=== PATIENT | male | born 1950 | race Caucasian/White ===

== ENCOUNTER 2019-06-22 13:35 | Emergency (ER) | payer MEDICARE, SELFPAY ==
[2019-06-22 13:42] VITALS: BP 126/82; PULSE 75; RESP 18; TEMP 36.2; O2SAT 98
--- NOTE | 2019-06-22 13:47 | PC.NURSE ---
Pt self discontinued plavix and xeralto and put himself on ASA. Meds were to expensive for him to take.
[2019-06-22 14:00] VITALS: BP 136/78; PULSE 65; RESP 17; O2SAT 97
[2019-06-22 14:31] LABS: Prothrombin Time 11.5 SECONDS (10.1-12.7)
[2019-06-22 14:32] LABS: Add Manual Diff / Slide Review NO; Basophils Absolute Auto 0 /uL (0-100); Basophils Percent Auto 0.6 % (0-2); Eosinophils Absolute Auto 200 /uL (0-450); Eosinophils Percent Auto 2.8 % (2-4); Hematocrit 50.3 % (41-53); Hemoglobin 17.7 g/dL (13.5-17.5); Lymphocytes Absolute Auto 2100 /uL (1100-4500); Lymphocytes Percent Auto 29.3 % (25-40); Mean Corpuscular HGB Conc 35.2 % (30-36); Mean Corpuscular Hemoglobin 31.5 PG (26-34); Mean Corpuscular Volume 89.4 fL (80-100); Monocytes Absolute Auto 500 /uL (0-900); Monocytes Percent Auto 6.5 % (3-14); Neutrophils Absolute Auto 4400 /uL (1500-7000); Neutrophils Percent Auto 60.8 % (50-75); Platelet Count 179 X10^3/uL (150-400); Red Blood Cell Count 5.63 X10^6/uL (4.5-5.9); Red Cell Distribution Width 14.7 % (11.6-14.8); White Blood Cell Count 7.3 X10^3/uL (4.5-11.0)
[2019-06-22 14:36] LABS: Blood Urea Nitrogen 18 mg/dL (9-20); Calcium 9.6 mg/dL (8.4-10.2); Carbon Dioxide 28 mmol/L (22-32); Chloride 104 mmol/L (98-107); Estimated Glomerular Filt Rate > 60.0 mL/min (>60); Glucose 91 mg/dL (80-110); HEMOLYSIS 16 (0-50); Potassium 3.9 mmol/L (3.4-5.1); Sodium 140 mmol/L (137-145)
--- NOTE | 2019-06-22 14:48 | ED_ITS ---
HPI - Abdominal Pain General Chief Complaint: Abdominal Pain Stated Complaint: hernia/night sweats Time Seen by Provider: 06/22/19 14:05 Source: patient Mode of arrival: Ambulatory Limitations: no limitations History of Present Illness HPI narrative: Patient is a 69-year-old male with known peripheral vascular disease presenting with night sweats and right inguinal hernia. He states that he has had right inguinal hernia for the last 2 years every time he stands up it pops out and when he lies down he is able to push it in. This has not changed it is currently in he has no pain in his right groin. He has for the last 4-5 nights woken up drenching in sweat. He denies any abdominal pain nausea vomiting chest pain shortness of breath fevers weight loss or chills. He says during the day he has gotten warm, and needed to take off layers complaint: abdominal pain Related Data Home Medications Medication Instructions Recorded Confirmed aspirin 325 mg PO DAILY 06/22/19 06/22/19 Allergies Allergy/AdvReac Type Severity Reaction Status Date / Time No Known Drug Allergies Allergy Verified 06/22/19 13:47 Review of Systems Review of Systems ROS Unobtainable: All systems reviewed & are unremarkable except as noted in HPI and below Constitutional Constitutional: Denies chills, Reports excessive sweating, Denies lethargy, Denies malaise and Reports poor appetite Cardiovascular Cardiovascular: Denies chest pain, Denies irregular heart rhythm, Denies lightheadedness, Denies palpitations and Denies orthopnea Gastrointestinal Gastrointestinal: Reports as per HPI Genitourinary Genitourinary: Denies hematuria, Denies flank pain, Denies urinary incontinence and Denies urinary urgency Musculoskeletal Musculoskeletal: Denies back pain, Denies muscle weakness, Denies numbness and Denies tingling Integumentary/Breasts Skin/Breast: Denies pruritus, Denies erythema, Denies rash and Denies wounds Neurologic Neurologic: Denies numbness and Denies tingling Endocrine Endocrine: Reports excessive sweating and Denies palpitations Patient History Medical History Abdominal aortic aneurysm (AAA) (Resolved 2018) Anxiety (Chronic Unknown) Aortic stenosis (Chronic 2018) Chickenpox (Resolved) Deep vein thrombosis (Chronic 2018) Femoral artery aneurysm (Resolved 2018) Measles (Resolved) Migraines (Chronic Unknown) Mumps (Resolved) Substance abuse (Chronic Unknown) Surgical History Hx of aortic aneurysm repair (Resolved 08/2017) Hx of surgical procedure (Resolved 08/2017) Family History Sister Age: 78 Lymphoma Father No problems noted. Mother No problems noted. Social History Smoking Status: Never smoker Smoking Status: Never smoker alcohol intake frequency: 0-2 drinks per day Substance Use Type: marijuana Exam Initial Vital Signs Initial Vital Signs: Vital Signs Temperature 97.1 F L 06/22/19 13:42 Pulse Rate 75 06/22/19 13:42 Respiratory Rate 18 06/22/19 13:42 Blood Pressure 126/82 06/22/19 13:42 Pulse Oximetry 98 06/22/19 13:42 GENERAL: Well-appearing, well-nourished and in no acute distress. HEENT: Head atraumatic,EOMI, pupils reactive, face symmetric CARDIOVASCULAR: Regular rate and rhythm without murmurs, rubs or gallops. RESPIRATORY: Breath sounds equal bilaterally, no wheezes rales or rhonchi. ABDOMEN: Soft, nontender. Normoactive bowel sounds all 4 quadrants. No guarding or rebound. Right inguinal hernia reducible no swelling nontender EXTREMITIES: Normal range of motion, no clubbing or edema. Neurovascularly intact. Distal pedal pulse in right foot is present and warm NEUROLOGICAL: Alert and oriented x4.Normal gait and speech. SKIN: Warm, dry, no laceration, no petechiae, no rashes or lesions. Course Orders Ordered: ED Orders 06/22/19 14:16 Basic Metabolic Panel Stat Complete Blood Count AUTO DIFF Stat Prothrombin Time INR Stat Vital Signs Vital signs: Vital Signs - 8 hr 06/22/19 13:42 06/22/19 14:00 06/22/19 15:05 Temperature 97.1 F L Pulse Rate 75 65 64 Respiratory Rate 18 17 17 Blood Pressure 126/82 Blood Pressure [Left Arm] 136/78 136/77 Pulse Oximetry 98 97 100 06/22/19 16:03 Temperature Pulse Rate 68 Respiratory Rate 17 Blood Pressure Blood Pressure [Left Arm] 133/98 H Pulse Oximetry 96 MDM - Abdominal Pain Lab Data Attestation: I reviewed the patient's lab results. Result diagrams: 06/22/19 14:16 06/22/19 14:16 Labs: Lab Results 06/22/19 06/22/19 06/22/19 Range/Units 14:16 14:16 14:16 WBC 7.3 (4.5-11.0) X10^3/uL RBC 5.63 (4.5-5.9) X10^6/uL Hgb 17.7 H (13.5-17.5) g/dL Hct 50.3 (41-53) % MCV 89.4 (80-100) fL MCH 31.5 (26-34) PG MCHC 35.2 (30-36) % RDW 14.7 (11.6-14.8) % Plt Count 179 (150-400) X10^3/uL Neut % (Auto) 60.8 (50-75) % Lymph % (Auto) 29.3 (25-40) % [place] % (Auto) 6.5 (3-14) % Eos % (Auto) 2.8 (2-4) % Baso % (Auto) 0.6 (0-2) % Neut # (Auto) 4400 (9806-5802) /uL Lymph # (Auto) 2100 (0606-1932) /uL [place] # (Auto) 500 (0-900) /uL Eos # (Auto) 200 (0-450) /uL Baso # (Auto) 0 (0-100) /uL PT 11.5 (10.1-12.7) SECONDS INR 1.0 (0.9-1.3) Sodium 140 (137-145) mmol/L Potassium 3.9 (3.4-5.1) mmol/L Chloride 104 (98-107) mmol/L Carbon Dioxide 28 (22-32) mmol/L BUN 18 (9-20) mg/dL Creatinine 1.20 (0.66-1.25) mg/dL Estimated GFR > 60.0 (>60) mL/min BUN/Creatinine Ratio 15.0 (6-22) Glucose 91 (80-110) mg/dL Calcium 9.6 (8.4-10.2) mg/dL [facility] Narrative Medical decision making narrative: At this time patient has no abdominal pain he has a chronic ongoing right inguinal hernia which is clearly reducible. I recommend he follow up with a PCP and with surgery. He has no sign of infection, no fever or leukocytosis or other signs. At this time no further workup indicated. Discharge Plan Departure Patient Disposition: Home Clinical Impression: Hernia, inguinal, right Discharge Date/Time: 06/22/19 16:30 Instructions: Groin Hernia -- Adult Activity Restrictions/Additional Instructions: *You have been diagnosed with right inguinal hernia *What to do: You will need to have surgery to repair your hernia. *Continue to take medications as directed *Follow up with your primary care provider in 2-3 days Will need to have referral to surgery for repair *Return to ER if you should have increasing weakness chills, shortness of breath cough abdominal pain nausea vomiting inability to reduce or any new, worsening or concerning symptoms Prescriptions: No Action aspirin 325 mg Tablet 325 mg PO DAILY RF: 0 Referrals: [facility] [Provider Group] [facility] [Outside]
[2019-06-22 15:05] VITALS: BP 136/77; PULSE 64; RESP 17; O2SAT 100
[2019-06-22 16:03] VITALS: BP 133/98; PULSE 68; RESP 17; O2SAT 96
== END 2019-06-22 16:30 | disposition home or self-care (01) ==
PROVIDERS: Emergency Provider Emergency Medicine
DX: K40.91 Unilateral inguinal hernia, without obstruction or gangrene, recurrent (principal); R61 Generalized hyperhidrosis
CPT/HCPCS: 36415; 80048; 85025; 85610; 99283; 99284

== ENCOUNTER 2024-04-22 08:35 | Emergency (ER) | payer MEDICARE, SELFPAY ==
[2024-04-22] VITALS (27 sets, daily range): BP systolic 132–180; BP diastolic 71–94; PULSE 41–69; RESP 16–19; TEMP 36.4; O2SAT 95–99; BMI 22.9
--- NOTE | 2024-04-22 08:51 | ED_ITS ---
HPI - General Adult General Chief complaint: Extremity Injury, Lower Stated complaint: L leg swelling Time Seen by Provider: 04/22/24 08:40 History of Present Illness HPI narrative: 74-year-old gentleman with peripheral artery disease, AAA, femoral arterial aneurysm and arterial stents in the Left LEwho presents with leg swelling. He was seen at [facility] in the emergency department on April 06 for the same complaint. He does have a history of DVT is not currently anticoagulated. At that time the swelling was felt to be secondary to his peripheral arterial disease and he was referred back to his vascular surgeon and effort. There was no PE, DVT, infection, heart failure and no limb threatening ischemia. He notes that the pain is so severe currently that he is having difficulty sleeping. He typically will get up and walk around to help with the pain. He notes that he has been putting up all of his would for the winter as they heat with a fireplace. That means that he has been actively chopping lifting and stacking firewood. He does not complain of worsening pain beyond some fatigue in the low back that seems to be his baseline particularly after a day of heavy labor with the fire wood. He is chronic exertional dyspnea and continues to smoke marijuana daily. Related Data Home Medications Medication Instructions Recorded Confirmed aspirin 325 mg tablet 325 mg PO DAILY 06/22/19 06/22/19 Previous Rx's Medication Instructions Recorded oxycodone-acetaminophen 5 mg-325 1 tab PO Q6H PRN pain #60 tabs 04/22/24 mg tablet polyethylene glycol 3350 17 17 g PO BID #850 grams 04/22/24 gram/dose oral powder (Miralax) Allergies Allergy/AdvReac Type Severity Reaction Status Date / Time No Known Drug Allergies Allergy Verified 06/22/19 13:47 Review of Systems Review of Systems Narrative: Increased urinary symptoms with no dysuria but significant nocturia Other Pertinent positive and negative findings as per HPI Patient History Medical History (Updated 04/22/24 @ 18:28 by Roberta Blanco MD) Femoral artery aneurysm (2018) Chickenpox Mumps Measles Migraines (Unknown) Substance abuse (Unknown) Anxiety (Unknown) Deep vein thrombosis (2018) Aortic stenosis (2018) Abdominal aortic aneurysm (AAA) (2018) Surgical History Hx of surgical procedure (08/2017) Hx of aortic aneurysm repair (08/2017) Family History Sister Age: 83 Lymphoma Father No problems noted. Mother No problems noted. Social History Smoking Status: Never smoker Smoking Status: Never smoker alcohol intake frequency: 0-2 drinks per day Substance Use Type: marijuana Exam Initial Vital Signs Initial Vital Signs: Vital Signs Temperature 97.6 F 04/22/24 08:55 Pulse Rate 69 04/22/24 08:55 Respiratory Rate 19 04/22/24 08:55 Blood Pressure 165/81 H 04/22/24 08:55 Pulse Oximetry 98 04/22/24 08:55 Oxygen Delivery Method Room Air 04/22/24 08:55 General: Thin in no acute distress. Able to give a complete and coherent history. HEENT: Moist mucous membranes, normal sclera with reactive pupils, Neck: No JVD, Respiratory: Lungs with scattered wheeze in all lung menard, no respiratory distress no accessory muscle use Cardiac: Regular rate and rhythm no murmurs no bruits Abdomen: Soft, nontender, good bowel tones, no flank pain Skin: Warm and dry, no rashes Neurologic: Grossly neurologically intact with no obvious asymmetries or abnormalities Extremities: Left lower extremity is slightly more edematous than the right. It is warm to the touch no erythema. No joint effusion of the knee or the ankle. I do not appreciate pulses from the groin down however he has excellent capillary refill Psych: Cooperative, appropriate insight and affect Course Orders Ordered: ED Orders 04/22/24 09:10 CT angio abd aorta runoff Stat 04/22/24 09:24 Comprehensive Metabolic Panel Stat 04/22/24 11:15 Comprehensive Metabolic Panel Stat PTT Partial Thromboplastin Jonel Stat Prothrombin Time INR Stat 04/22/24 14:15 CBC Auto Diff [Complete Blood Count AUTO DIFF] Stat Hydromorphone HCl (Hydromorphone 0.5 Mg Inj) 0.5 mg IV Q15MIN PRN PRN Reason: Pain, Last Admin: 04/22/24 09:21 Dose: 0.5 mg Documented By: CHARLI Discontinued Medications Oxycodone/Acetaminophen (Oxycodone/Acetaminophen 5/325 Tablet) 1 tab PO NOW ONE Stop: 04/22/24 10:54 Last Admin: 04/22/24 10:59 Dose: 1 tab Documented By: CHARLI Oxycodone/Acetaminophen (Oxycodone/Acetaminophen 5/325 Tablet) 1 tab PO NOW ONE Stop: 04/22/24 17:40 Last Admin: 04/22/24 17:45 Dose: 1 tab Documented By: ZULEYMA Vital Signs Vital signs: Vital Signs - 8 hr 04/22/24 10:30 04/22/24 10:30 04/22/24 11:00 Pulse Rate 55 L 63 Blood Pressure 136/74 Pulse Oximetry 96 99 04/22/24 11:18 04/22/24 11:18 04/22/24 11:30 Pulse Rate 57 L 56 L Blood Pressure 180/85 H Pulse Oximetry 99 98 04/22/24 11:30 04/22/24 12:00 04/22/24 12:10 Pulse Rate 53 L 58 L Blood Pressure 157/85 H Pulse Oximetry 97 96 04/22/24 12:10 04/22/24 12:30 04/22/24 12:31 Pulse Rate 58 L 59 L Blood Pressure 142/84 H Pulse Oximetry 97 97 04/22/24 12:31 04/22/24 13:00 04/22/24 13:00 Pulse Rate 53 L Blood Pressure 142/80 H 153/81 H Pulse Oximetry 98 04/22/24 13:30 04/22/24 13:30 04/22/24 14:00 Pulse Rate 55 L Blood Pressure 152/83 H 133/78 Pulse Oximetry 97 04/22/24 14:00 04/22/24 14:30 04/22/24 14:58 Pulse Rate 51 L 41 L 48 L Blood Pressure Pulse Oximetry 97 95 98 04/22/24 14:58 04/22/24 15:00 04/22/24 15:00 Pulse Rate 49 L Blood Pressure 132/78 132/78 Pulse Oximetry 98 04/22/24 15:30 04/22/24 15:31 04/22/24 15:31 Pulse Rate 46 L 50 L Blood Pressure 145/78 H Pulse Oximetry 98 98 04/22/24 16:00 04/22/24 16:00 04/22/24 16:30 Pulse Rate 54 L Blood Pressure 160/88 H 162/94 H Pulse Oximetry 99 04/22/24 16:30 Pulse Rate 55 L Blood Pressure Pulse Oximetry 98 Medical Decision Making Lab Data 04/22/24 14:15 04/22/24 11:15 Labs: Lab Results 04/22/24 04/22/24 04/22/24 Range/Units 09:24 11:15 14:15 WBC 6.2 (4.5-11.0) X10^3/uL RBC 4.81 (4.5-5.9) X10^6/uL Hgb 14.8 (13.5-17.5) g/dL Hct 44.5 (41-53) % MCV 92.4 (80-100) fL MCH 30.7 (26-34) PG MCHC 33.3 (30-36) % RDW 15.1 H (11.6-14.8) % Plt Count 173 (150-400) X10^3/uL Neut % (Auto) 55.6 (50-75) % Lymph % (Auto) 31.3 (25-40) % [place] % (Auto) 6.3 (3-14) % Eos % (Auto) 6.0 H (2-4) % Baso % (Auto) 0.8 (0-2) % Neut # (Auto) 3400 (2157-4410) /uL Lymph # (Auto) 1900 (2382-8176) /uL [place] # (Auto) 400 (0-900) /uL Eos # (Auto) 400 (0-450) /uL Baso # (Auto) 0 (0-100) /uL PT 11.1 (9.4-12.5) SECONDS INR 1.0 (0.9-1.3) APTT 29 (25.1-36.5) SECONDS Sodium 138 135 L (137-145) mmol/L Potassium 3.8 4.0 (3.4-5.1) mmol/L Chloride 106 106 (98-107) mmol/L Carbon Dioxide 26 26 (22-32) mmol/L BUN 22 H 21 H (9-20) mg/dL Creatinine 1.09 1.02 (0.66-1.25) mg/dL Estimated GFR > 60 > 60 (>60) mL/min BUN/Creatinine Ratio 20.2 20.6 (6-22) Glucose 96 91 (80-110) mg/dL Calcium 9.2 8.8 (8.4-10.2) mg/dL Total Bilirubin 0.8 0.7 (0.2-1.3) mg/dL AST 33 34 (17-59) IU/L ALT 25 24 (<50) IU/L Alkaline Phosphatase 58 48 (38-126) U/L Total Protein 7.1 6.7 (6.3-8.2) g/dL Albumin 4.2 3.9 (3.5-5.0) g/dL Globulin 2.9 2.8 (1.7-4.1) g/dL Albumin/Globulin Ratio 1.4 1.4 (1.0-2.8) Imaging Data CT scan - abdomen/pelvis: Radiologist's Impression: PROCEDURE: CT ANGIO ABD AORTA RUNOFF INDICATIONS: L leg pain and swelling TECHNIQUE: After the administration of intravenous contrast, 2.5 mm sections acquired from T12 to the feet, with optional delayed image acquisition from the knees to the feet. 3-dimensional maximum intensity projection (MIP) coronal and sagittal reformats, and/or 3-dimensional volume rendering reformatting was then performed. For radiation dose reduction, the following was used: automated exposure control. COMPARISON: None. FINDINGS: Image Quality: Diagnostic. Abdominal aorta: Scattered atherosclerotic plaque without significant stenosis. Aortic-bi iliac endovascular stent graft. No in stent stenosis. Splanchnic vessels: Celiac artery, superior mesenteric artery, renal arteries demonstrate normal postcontrast enhancement without evidence of occlusion or significant stenosis. Right lower extremity: Normal contrast opacification of the right lower extremity vasculature with no vessel occlusion or significant stenosis. Right popliteal endovascular stent. No in stent stenosis. Three-vessel runoff to the right ankle and foot. Left lower extremity: Normal contrast opacification of the left lower extremity vasculature with no vessel occlusion or significant stenosis. Three vessel runoff to the left ankle and foot. Lower Chest: No significant findings. ABDOMEN: Liver: No solid mass. Left hepatic cyst or hemangioma. Gallbladder: No radiopaque gallstones or wall thickening. Biliary ducts: No biliary dilation. Pancreas: No ductal dilation. Spleen: Size is within normal limits. Adrenal Glands: No adrenal nodules. Kidneys and Ureters: No hydronephrosis bilateral nonobstructing stones ranging in size from 1-3 millimeters.. No solid mass. No complex renal cystic lesion which requires follow up. Stomach and Bowel: Normal colonic caliber, without significant wall thickening. The appendix is normal. Peritoneum: No abnormal intraperitoneal fluid. No free air. Ventral Wall: No hernia. Abdominal Nodes: No retroperitoneal or mesenteric adenopathy by size criteria. Vessels: Aorta and inferior vena cava are normal in size. PELVIS: Pelvic Organs: Unremarkable. Bladder: Unremarkable. Pelvic Nodes: No enlarged lymph nodes. Miscellaneous: There is a large 15.8 x 13.6 x 18.5 centimeter heterogeneously enhancing mass in the left pelvis. Lesion is causing local mass effect with white word displacement of the left pelvic vasculature in the urinary bladder. Bones: No aggressive osseous abnormality. Spine degenerative disc disease and facet arthropathy. IMPRESSION: Large 15.8 x 13.6 x 18.5 centimeter left pelvic mass highly suspicious for malignancy. No arterial occlusion or significant arterial stenosis. Please note left lower extremity and/or pelvic venous occlusion are not excluded by this study. [id number] endovascular stent graft and right popliteal artery endovascular stent are patent. Dictated by: Natalie Parish MD, PhD on 04/22/2024 at 10:01 [facility] Narrative Medical decision making narrative: CC: Continued left leg pain and swelling Complicating co-morbidities: Peripheral vascular disease Data collected from: patient, Medical records reviewed: Please see summary of ER visit on the at [facility] including CT angiogram DVT study, blood work Differential considered: Vascular outflow obstruction, poor arterial flow, pelvic mass, I doubt infection, DVT is possible but study was-10 days ago and there has been little change in his symptoms Exam documented above, pertinent findings include: Mildly swollen left lower extremity without redness or warmth. Excellent capillary refill to the toes but palpable inguinal pulse is not noted. Bilateral scattered wheezes without respiratory distress Lab Test results independently reviewed as above. Pertinent findings: Chemistries are unremarkable with normal liver studies normal renal function Imaging studies independently reviewed: CT with runoff shows no vascular difficulties and no in stent occlusion. He does however have a mass in his left pelvis that is blocking lymphatic outflow that likely is the source of the pain and swelling in the left side Consultations: Discussed concerns with Radiology in real-time. Opted to do an abdomen pelvis CT scan with runoff with specific instructions to come in on pelvic structures Discussed with [facility] surgeon, recommends review with Oncology surgeon Discussion with the patient and his . They are updated on findings, concerns and continued discussions with physicians to develop to develop a follow up plan Discussed with [facility] transfer center, we will talk with General surgery at [facility]. Treatments: 0.5 mg of Dilaudid, 1 oral Percocet Re-evaluations: In light of the large pelvic mass, care is discussed with general surgeon, Repeat phone calls to [facility]. Initial surgeon they contact was not the appropriate one. Apparently appropriate surgeon was paged is currently in surgery will not be available till after 6:00 p.m.. Patient is notified of the reason for delay in care and understands. Discussion: 74-year-old gentleman no primary care physician on no medications presents for a 2nd ER visit, 1st visit was at [facility], complaining of left lower extremity pain. He does have significant peripheral vascular disease. As [facility] DVT and pulmonary embolism were ruled out as well as congestive heart failure and kidney failure is sources of his increased edema. CT scan with aortic runoff of the abdomen to make sure that he did not have arterial occlusions and to further evaluate pelvis was done today and shows a large pelvic mass that is impeding lymphatic flow, causing some left-sided hydronephrosis and pushing against his colon but not causing colonic obstruction. CT scan was discussed with surgeon at not like who recommended referral to Surgical Oncology sarcoma Clinic. He will hopefully try to leave a message for the clinic for them to call the patient to schedule follow up. Have asked the patient to try and schedule follow up with the primary care physician so that a referral might actually be initiated to [facility] sarcoma oncology clinic. He is going to need consultation and likely surgical intervention for diagnostic and therapeutic procedures. In the meantime he has given a prescription for Percocet to use for the pain from the swelling in the left lower extremity and prescription for MiraLax to make sure that who stool stays soft to help with the constipation that is currently right-sided that will be exacerbated with the Percocet. Findings reviewed with the patient in detail. There was no indication for admission at this time he is safe for discharge Discharge Plan Departure Patient Disposition: Home Clinical Impression: Abdominal mass Qualifiers: Abdominal location: left lower quadrant Qualified Code(s): R19.04 - Left lower quadrant abdominal swelling, mass and lump Instructions: DI for Soft Tissue Sarcoma-Adult Activity Restrictions/Additional Instructions: Thank you for coming in today The CT scan that we did shows a 16 x 14 x 19 cm mass in your lower abdomen. This is pressing down at the top of your leg and impairing lymphatic flow. That is the reason your leg is hurting and you are having so much swelling in the leg. I did speak with 1 of the general surgeons at the [facility]. His recommendation with looking at the scan was to follow up with surgical oncologist through the sarcoma Clinic. We do not have a tissue diagnosis but the mass could be consistent with a sarcoma cancer. The mass is big enough that it pushes against your colon slightly which is causing constipation which is some of the right-sided pain. It is okay to use laxatives once in awhile but I would suggest getting some MiraLax and taking 1-2 scoops in large glass of water daily, particularly if you are using narcotic pain medication It is appropriate to use narcotic pain medication if you choose to do so. I have sent a prescription for Percocet to [facility]. You should expect to hear from the sarcoma Clinic at the [facility], they have your phone number and address. Hopefully they will be able to get you an appointment without a primary care physician. You do need a primary care physician. You can call [facility] at [phone] and ask who they have available for primary care physicians. You can also contact the [facility] residency Clinic. Often times they are able to get people in for emergency department follow up their phone number is [phone] If all else fails and you are stuck, I am working day shift at [facility] in the emergency department on May 23, 2020, , and I wish you the very best Prescriptions: New oxycodone-acetaminophen 5-325 mg tablet 1 tab PO Q6H PRN (Reason: pain) Qty: 60 0RF polyethylene glycol 3350 [Miralax] 17 gram/dose powder 17 g PO BID Qty: 850 3RF Rx Instructions: take 2 capfulls daily to prevent constipation from your mass and narcotic use No Action aspirin 325 mg Tablet 325 mg PO DAILY Stand Alone Forms: Patient Portal/API
--- NOTE | 2024-04-22 09:04 | PC.NURSE ---
Denies injury. States worsening swelling and pain (cramping, burning) over the past 2 weeks. Pt was told original tests were negative and was discharged. Pt states he has been taking ibuprofen at home w/ no relief of pain. Swelling noted; no pitting edema noted.
--- NOTE | 2024-04-22 09:10 | DI.CT.S_ITS ---
PROCEDURE: CT ANGIO ABD AORTA RUNOFF INDICATIONS: L leg pain and swelling TECHNIQUE: After the administration of intravenous contrast, 2.5 mm sections acquired from T12 to the feet, with optional delayed image acquisition from the knees to the feet. 3-dimensional maximum intensity projection (MIP) coronal and sagittal reformats, and/or 3-dimensional volume rendering reformatting was then performed. For radiation dose reduction, the following was used: automated exposure control. COMPARISON: None. FINDINGS: Image Quality: Diagnostic. Abdominal aorta: Scattered atherosclerotic plaque without significant stenosis. Aortic-bi iliac endovascular stent graft. No in stent stenosis. Splanchnic vessels: Celiac artery, superior mesenteric artery, renal arteries demonstrate normal postcontrast enhancement without evidence of occlusion or significant stenosis. Right lower extremity: Normal contrast opacification of the right lower extremity vasculature with no vessel occlusion or significant stenosis. Right popliteal endovascular stent. No in stent stenosis. Three-vessel runoff to the right ankle and foot. Left lower extremity: Normal contrast opacification of the left lower extremity vasculature with no vessel occlusion or significant stenosis. Three vessel runoff to the left ankle and foot. Lower Chest: No significant findings. ABDOMEN: Liver: No solid mass. Left hepatic cyst or hemangioma. Gallbladder: No radiopaque gallstones or wall thickening. Biliary ducts: No biliary dilation. Pancreas: No ductal dilation. Spleen: Size is within normal limits. Adrenal Glands: No adrenal nodules. Kidneys and Ureters: No hydronephrosis bilateral nonobstructing stones ranging in size from 1-3 millimeters.. No solid mass. No complex renal cystic lesion which requires follow up. Stomach and Bowel: Normal colonic caliber, without significant wall thickening. The appendix is normal. Peritoneum: No abnormal intraperitoneal fluid. No free air. Ventral Wall: No hernia. Abdominal Nodes: No retroperitoneal or mesenteric adenopathy by size criteria. Vessels: Aorta and inferior vena cava are normal in size. PELVIS: Pelvic Organs: Unremarkable. Bladder: Unremarkable. Pelvic Nodes: No enlarged lymph nodes. Miscellaneous: There is a large 15.8 x 13.6 x 18.5 centimeter heterogeneously enhancing mass in the left pelvis. Lesion is causing local mass effect with white word displacement of the left pelvic vasculature in the urinary bladder. Bones: No aggressive osseous abnormality. Spine degenerative disc disease and facet arthropathy. IMPRESSION: Large 15.8 x 13.6 x 18.5 centimeter left pelvic mass highly suspicious for malignancy. No arterial occlusion or significant arterial stenosis. Please note left lower extremity and/or pelvic venous occlusion are not excluded by this study. [id number] endovascular stent graft and right popliteal artery endovascular stent are patent. Dictated by: Natalie Parish MD, PhD on 04/22/2024 at 10:01 Approved by: Natalie Parish MD, PhD on 04/22/2024 at 10:12
[2024-04-22] MEDS: HYDROMORPHONE 0.5 MG INJ IV (09:21)
[2024-04-22 09:41] LABS: Alanine Aminotransferase 25 IU/L (<50); Albumin 4.2 g/dL (3.5-5.0); Albumin Globulin Ratio 1.4 (1.0-2.8); Alkaline Phosphatase 58 U/L (38-126); Aspartate Aminotransferase 33 IU/L (17-59); BUN Creatinine Ratio 20.2 (6-22); Bilirubin Total 0.8 mg/dL (0.2-1.3); Blood Urea Nitrogen 22 mg/dL (9-20); Calcium 9.2 mg/dL (8.4-10.2); Carbon Dioxide 26 mmol/L (22-32); Chloride 106 mmol/L (98-107); Estimated Glomerular Filt Rate > 60 mL/min (>60); Globulin 2.9 g/dL (1.7-4.1); Glucose 96 mg/dL (80-110); HEMOLYSIS < 15 (0-50); Potassium 3.8 mmol/L (3.4-5.1); Sodium 138 mmol/L (137-145); Total Protein 7.1 g/dL (6.3-8.2)
[2024-04-22] MEDS: OXYCODONE/ACETAMINOPHEN 5/325 TABLET 1 TAB PO ×2 (10:59→17:45)
[2024-04-22 11:33] LABS: Prothrombin Time 11.1 SECONDS (9.4-12.5)
[2024-04-22 11:36] LABS: PTT Partial Thromboplastin Tim 29 SECONDS (25.1-36.5)
[2024-04-22 11:38] LABS: Alanine Aminotransferase 24 IU/L (<50); Albumin 3.9 g/dL (3.5-5.0); Albumin Globulin Ratio 1.4 (1.0-2.8); Alkaline Phosphatase 48 U/L (38-126); Aspartate Aminotransferase 34 IU/L (17-59); BUN Creatinine Ratio 20.6 (6-22); Bilirubin Total 0.7 mg/dL (0.2-1.3); Blood Urea Nitrogen 21 mg/dL (9-20); Calcium 8.8 mg/dL (8.4-10.2); Carbon Dioxide 26 mmol/L (22-32); Chloride 106 mmol/L (98-107); Estimated Glomerular Filt Rate > 60 mL/min (>60); Globulin 2.8 g/dL (1.7-4.1); Glucose 91 mg/dL (80-110); Sodium 135 mmol/L (137-145); Total Protein 6.7 g/dL (6.3-8.2)
[2024-04-22 11:39] LABS: HEMOLYSIS 52 (0-50)
[2024-04-22 14:22] LABS: Add Manual Diff / Slide Review NO; Basophils Absolute Auto 0 /uL (0-100); Basophils Percent Auto 0.8 % (0-2); Eosinophils Absolute Auto 400 /uL (0-450); Hematocrit 44.5 % (41-53); Hemoglobin 14.8 g/dL (13.5-17.5); Lymphocytes Absolute Auto 1900 /uL (1100-4500); Lymphocytes Percent Auto 31.3 % (25-40); Mean Corpuscular HGB Conc 33.3 % (30-36); Mean Corpuscular Hemoglobin 30.7 PG (26-34); Mean Corpuscular Volume 92.4 fL (80-100); Monocytes Absolute Auto 400 /uL (0-900); Monocytes Percent Auto 6.3 % (3-14); Neutrophils Absolute Auto 3400 /uL (1500-7000); Neutrophils Percent Auto 55.6 % (50-75); Platelet Count 173 X10^3/uL (150-400); Red Blood Cell Count 4.81 X10^6/uL (4.5-5.9); Red Cell Distribution Width 15.1 % (11.6-14.8); White Blood Cell Count 6.2 X10^3/uL (4.5-11.0)
--- NOTE | 2024-04-22 15:01 | PC.NURSE ---
Addendum entered by Niles Ledesma 04/22/24 16:05: Transfer center called back. The transfer center wanted to tell us that the general surgeon generation technician would not be able to contact us until 1800. Message passed along to provider. - [phone] Original Note: Patient Transfer Progress Told by the providfer to contact [facility] after the patient's CTA was read - [phone] Followed up with [facility] because of the delay in being called back. Patient's case was handed over to a new nurse in the transfer center @ less than 20 minutes prior to my call. Was told that [facility] new nurse was under the impression that a second scan was going to be sent to them. No second is scan necessary. Miscommunication was cleared up and General Surgeon was being paged - [phone] [facility] [place] called again for an update on when we could be hearing from their general surgeon. I was told that the general surgeon generation technician, Dr. Colvin, is in the OR so the they are having trouble getting ahold of him. - [phone]
[2024-04-22] MEDS: OXYCODONE/APAP 5/325 PREPACK 1 BOTTLE MISC (18:42)
== END 2024-04-22 18:52 | disposition home or self-care (01) ==
PROVIDERS: Emergency Provider Emergency Medicine
DX: R19.04 Left lower quadrant abdominal swelling, mass and lump (principal); Z95.5 Presence of coronary angioplasty implant and graft; Z86.79 Personal history of other diseases of the circulatory system
CPT/HCPCS: 36415; 75635; 80053; 85025; 85610; 85730; 96374; 99284; J1171; Q9967

== ENCOUNTER 2024-11-07 11:40 | Inpatient (IN) | payer MEDICARE, SELFPAY ==
[2024-11-07] VITALS (17 sets, daily range): BP systolic 92–124; BP diastolic 56–72; PULSE 95–122; RESP 16–24; TEMP 37.1–37.7; O2SAT 96–99; BMI 20.2
--- NOTE | 2024-11-07 11:55 | EKG_ITS ---
[facility] [id number] [place] [address] Test Date: 2024-11-07 Pat Name: Denis Serna Department: [facility] Room: Gender: Male Java Engineer: : 1950 Requested By: Order Number: [id number] Reading MD: Carlos Allred MD Measurements Intervals Abie Rate: 106 P: 44 OR: 178 QRS: 69 QRSD: 86 T: 74 QT: 340 QTc: 451 Interpretive Statements Sinus tachycardia with premature atrial complexes Electronically Signed On 11-08-2024 8:42:45 PDT by Carlos Allred MD
--- NOTE | 2024-11-07 12:06 | ED_ITS ---
HPI - Abdominal Pain General Chief Complaint: Abdominal Pain Stated Complaint: Abd pain-hx osteosarcoma Time Seen by Provider: 11/07/24 11:55 Source: patient and EMS Mode of arrival: EMS History of Present Illness HPI narrative: Patient is a 74-year-old male history of osteosarcoma currently undergoing chemotherapy over at [facility] presenting today with low-grade fevers and low blood pressure. reports that he was had temperature last 1- 2 days of 100 he was progressively getting weaker. Patient is an overall poor historian appears uncomfortable. No nausea or vomiting or cough. and patient both report continued full code status. Related Data Home Medications Medication Instructions Recorded Confirmed aspirin 325 mg tablet 325 mg PO DAILY 06/22/19 06/22/19 Previous Rx's Medication Instructions Recorded oxycodone-acetaminophen 5 mg-325 1 tab PO Q6H PRN pain #60 tabs 04/22/24 mg tablet polyethylene glycol 3350 17 17 g PO BID #850 grams 04/22/24 gram/dose oral powder (Miralax) Allergies Allergy/AdvReac Type Severity Reaction Status Date / Time prochlorperazine Allergy Unconscious Verified 11/07/24 11:53 [From Compazine] Patient History Medical History (Updated 11/07/24 @ 16:42 by Manjula Hoang DO) Femoral artery aneurysm (2018) Chickenpox Mumps Measles Migraines (Unknown) Substance abuse (Unknown) Anxiety (Unknown) Deep vein thrombosis (2018) Aortic stenosis (2018) Abdominal aortic aneurysm (AAA) (2018) Surgical History Hx of surgical procedure (08/2017) Hx of aortic aneurysm repair (08/2017) Family History Sister Age: 84 Lymphoma Father No problems noted. Mother No problems noted. Social History Smoking Status: Current some day smoker Smoking Status: Current some day smoker alcohol intake frequency: 0-2 drinks per day Exam Initial Vital Signs Initial Vital Signs: Vital Signs Temperature 98.7 F 11/07/24 11:40 Pulse Rate 108 H 11/07/24 11:40 Respiratory Rate 18 11/07/24 11:40 Blood Pressure 93/57 L 11/07/24 11:40 Pulse Oximetry 99 11/07/24 11:40 Oxygen Delivery Method Room Air 11/07/24 11:40 GENERAL: Chronically ill cachectic weak 74-year-old male HEENT: Head atraumatic,EOMI, pupils reactive, face symmetric, drop mucous membranes CARDIOVASCULAR: Regular rate and rhythm without murmurs, rubs or gallops. RESPIRATORY: Breath sounds equal bilaterally, no wheezes rales or rhonchi. ABDOMEN: Soft, palpable suprapubic mass greater on left than right side EXTREMITIES: Normal range of motion, no clubbing or edema. Neurovascularly intact NEUROLOGICAL: Alert moving all extremity SKIN: Warm, dry, no laceration, no petechiae, no rashes or lesions. Course Orders Ordered: ED Orders 11/07/24 11:40 Comprehensive Metabolic Panel Stat Lactate (Lactic Acid) Stat Lipase Stat 11/07/24 11:48 EKG-12 Lead Stat 11/07/24 12:13 CT chest abd pel w con Stat 11/07/24 12:19 Complete Blood Count AUTO DIFF Stat 11/07/24 13:10 Urine Culture Stat Urine Microscopic Stat 11/07/24 13:55 Type and Screen Stat 11/07/24 14:08 Blood Culture Stat 11/07/24 16:22 Respiratory Panel (Film Array) Stat Acetaminophen (Acetaminophen 325 Mg Tablet) 650 mg PO Q6H PRN PRN Reason: Fever/Mild Pain (1-3) Hydromorphone HCl (Hydromorphone 1 Mg Inj) 1 mg IV Q2HR PRN PRN Reason: Pain, Moderate (4-6) Last Admin: 11/07/24 14:07 Dose: 1 mg Documented By: Admin: 11/07/24 12:22 Dose: 1 mg Documented By: KATIE Sodium Chloride (Normal Saline 0.9%) 1,000 mls @ 100 mls/hr IV CONT ALFONSO Last Admin: 11/07/24 14:24 Dose: 100 mls/hr Documented By: NADEGE Dextrose/Sodium Chloride (Dextrose 5%-0.45% Ns) 1,000 mls @ 100 mls/hr IV CONT ALFONSO Piperacillin Sod/Tazobactam (Sod 3.375 gm/ Sodium Chloride) 100 mls @ 25 mls/hr IV Q8H ALFONSO Naloxone HCl (Naloxone 0.4 Mg/Ml Vial) 0.2 mg IV Q2MIN PRN PRN Reason: Opiate Reversal Ondansetron HCl (Ondansetron 4 Mg/2 Ml Inj) 4 mg IV NOW PRN PRN Reason: Nausea And Vomiting Ondansetron HCl (Ondansetron 4 Mg Odt) 4 mg PO NOW PRN PRN Reason: Nausea And Vomiting Ondansetron HCl (Ondansetron 4 Mg/2 Ml Inj) 4 mg IV Q8HR PRN PRN Reason: Nausea And Vomiting Vancomycin HCl (Vancomycin Per Pharmacy) 1 request MISC NOW PRN PRN Reason: neutropenic fever Discontinued Medications Sodium Chloride (Normal Saline 0.9%) 1,000 mls @ 1,000 mls/hr IV BOLUS ONE Stop: 11/07/24 13:12 Last Infusion: 11/07/24 14:10 Dose: Infused Documented By: Admin: 11/07/24 12:22 Dose: 1,000 mls/hr Documented By: KATIE Piperacillin Sod/Tazobactam (Sod 4.5 gm/ Sodium Chloride) 100 mls @ 200 mls/hr IV NOW ONE Stop: 11/07/24 13:51 Last Infusion: 11/07/24 14:44 Dose: Infused Documented By: Admin: 11/07/24 14:10 Dose: 200 mls/hr Documented By: NADEGE Vancomycin HCl (Vancomycin) 1,250 mg in 250 mls @ 250 mls/hr IV NOW ONE Stop: 11/07/24 14:50 Last Infusion: 11/07/24 15:48 Dose: Infused Documented By: Admin: 11/07/24 14:44 Dose: 250 mls/hr Documented By: NADEGE Acetaminophen (Ofirmev) 1,000 mg in 100 mls @ 400 mls/hr IV NOW ONE Stop: 11/07/24 14:09 Last Infusion: 11/07/24 14:35 Dose: Infused Documented By: Admin: 11/07/24 14:12 Dose: 400 mls/hr Documented By: NADEGE Piperacillin Sod/Tazobactam (Sod 3.375 gm/ Sodium Chloride) 100 mls @ 25 mls/hr IV Q8H ALFONSO Lidocaine HCl (Lidocaine 2% (Glydo) 6 Ml Gel) 6 ml TOP NOW ONE Stop: 11/07/24 12:49 Last Admin: 11/07/24 12:56 Dose: 6 ml Documented By: KATIE Vital Signs Vital signs: Vital Signs - 8 hr 11/07/24 11:40 11/07/24 11:44 11/07/24 11:44 Temperature 98.7 F Pulse Rate 108 H 108 H Respiratory Rate 18 Blood Pressure 93/57 L 93/57 L Pulse Oximetry 99 99 Oxygen Delivery Method Room Air 11/07/24 12:00 11/07/24 12:00 11/07/24 12:36 Temperature Pulse Rate 106 H 104 H Respiratory Rate 19 Blood Pressure 108/61 Pulse Oximetry 96 Oxygen Delivery Method 11/07/24 12:38 11/07/24 12:38 11/07/24 13:00 Temperature Pulse Rate 104 H 105 H Respiratory Rate 18 24 Blood Pressure 109/65 Pulse Oximetry 99 96 Oxygen Delivery Method Room Air 11/07/24 13:00 11/07/24 13:30 11/07/24 13:30 Temperature Pulse Rate 105 H Respiratory Rate 18 Blood Pressure 124/58 L 116/69 Pulse Oximetry 99 Oxygen Delivery Method 11/07/24 14:00 11/07/24 14:21 11/07/24 14:21 Temperature Pulse Rate 104 H 110 H Respiratory Rate 21 20 Blood Pressure 102/57 L Pulse Oximetry 97 99 Oxygen Delivery Method 11/07/24 14:30 11/07/24 14:30 11/07/24 15:00 Temperature Pulse Rate 110 H 122 H Respiratory Rate 20 17 Blood Pressure 92/56 L Pulse Oximetry 98 Oxygen Delivery Method 11/07/24 15:00 11/07/24 15:30 11/07/24 15:30 Temperature Pulse Rate 109 H Respiratory Rate 16 Blood Pressure 106/68 102/62 Pulse Oximetry Oxygen Delivery Method MDM - Abdominal Pain Lab Data 11/07/24 12:19 11/07/24 11:40 Labs: Lab Results 11/07/24 11/07/24 11/07/24 Range/Units 11:40 12:19 13:10 WBC 0.1 L* (4.5-11.0) X10^3/uL RBC 2.29 L (4.5-5.9) X10^6/uL Hgb 6.5 L* (13.5-17.5) g/dL Hct 19.0 L* (41-53) % MCV 83.0 (80-100) fL MCH 28.4 (26-34) PG MCHC 34.3 (30-36) % RDW 17.5 H (11.6-14.8) % Plt Count 6 L* (150-400) X10^3/uL Neut % (Auto) 0.3 L (50-75) % Lymph % (Auto) 95.4 H (25-40) % Daggett % (Auto) 3.7 (3-14) % Eos % (Auto) 0.6 L (2-4) % Baso % (Auto) 0.0 (0-2) % Neut # (Auto) 0 L (9221-5495) /uL Lymph # (Auto) 100 L (5007-0339) /uL Daggett # (Auto) 0 (0-900) /uL Eos # (Auto) 0 (0-450) /uL Baso # (Auto) 0 (0-100) /uL RBC Morphology Not Reportable Poikilocytosis 1+ H Anisocytosis 2+ H Sodium 126 L (137-145) mmol/L Potassium 3.9 (3.4-5.1) mmol/L Chloride 94 L (98-107) mmol/L Carbon Dioxide 24 (22-32) mmol/L BUN 20 (9-20) mg/dL Creatinine 0.87 (0.66-1.25) mg/dL Estimated GFR > 60 (>60) mL/min BUN/Creatinine Ratio 23.0 H (6-22) Glucose 155 H (70-99) mg/dL Lactate 3.7 H (0.7-2.1) mmol/L Calcium 8.4 (8.4-10.2) mg/dL Total Bilirubin 0.7 (0.2-1.3) mg/dL AST 42 (17-59) IU/L ALT 54 H (<50) IU/L Alkaline Phosphatase 71 (38-126) U/L Total Protein 5.6 L (6.3-8.2) g/dL Albumin 2.9 L (3.5-5.0) g/dL Globulin 2.7 (1.7-4.1) g/dL Albumin/Globulin Ratio 1.1 (1.0-2.8) Lipase 34 (23-300) U/L Urine RBC 10-30/hpf H (0-5/HPF) Urine WBC 1-5/hpf (0-5/HPF) Ur Squamous Epith Cells 0-1 /hpf (0-5/HPF) Urine Bacteria Many (>30) H (None) Vol Urine Centrifuged 10ml (spun) Blood Type Antibody Screen 11/07/24 Range/Units 13:55 WBC (4.5-11.0) X10^3/uL RBC (4.5-5.9) X10^6/uL Hgb (13.5-17.5) g/dL Hct (41-53) % MCV (80-100) fL MCH (26-34) PG MCHC (30-36) % RDW (11.6-14.8) % Plt Count (150-400) X10^3/uL Neut % (Auto) (50-75) % Lymph % (Auto) (25-40) % Daggett % (Auto) (3-14) % Eos % (Auto) (2-4) % Baso % (Auto) (0-2) % Neut # (Auto) (4095-7523) /uL Lymph # (Auto) (2662-5532) /uL Daggett # (Auto) (0-900) /uL Eos # (Auto) (0-450) /uL Baso # (Auto) (0-100) /uL RBC Morphology Poikilocytosis Anisocytosis Sodium (137-145) mmol/L Potassium (3.4-5.1) mmol/L Chloride (98-107) mmol/L Carbon Dioxide (22-32) mmol/L BUN (9-20) mg/dL Creatinine (0.66-1.25) mg/dL Estimated GFR (>60) mL/min BUN/Creatinine Ratio (6-22) Glucose (70-99) mg/dL Lactate 1.2 (0.7-2.1) mmol/L Calcium (8.4-10.2) mg/dL Total Bilirubin (0.2-1.3) mg/dL AST (17-59) IU/L ALT (<50) IU/L Alkaline Phosphatase (38-126) U/L Total Protein (6.3-8.2) g/dL Albumin (3.5-5.0) g/dL Globulin (1.7-4.1) g/dL Albumin/Globulin Ratio (1.0-2.8) Lipase (23-300) U/L Urine RBC (0-5/HPF) Urine WBC (0-5/HPF) Ur Squamous Epith Cells (0-5/HPF) Urine Bacteria (None) Vol Urine Centrifuged Blood Type O Positive Antibody Screen Negative Point of care testing: Urine Dip Bedside Urine Glucose Negative Bedside Urine Bilirubin - Negative Bedside Urine Ketone - Negative Urine Specific Alpha 1.015 Bedside Urine Occult Blood +++ Bedside Urine pH 6.0 Bedside Urine Protein + 30 Bedside Urine Urobilinogen 1+ 2mg Bedside Urine Nitrite + Positive Bedside Urine Leukocytes - Negative Esterase Imaging Data CT scan - abdomen/pelvis: Radiologist's Impression: PROCEDURE: CT CHEST ABD PEL W CON INDICATIONS: Osteosarcoma with abdominal pain TECHNIQUE: After the administration of intravenous contrast, 5 mm thick sections acquired from the lung apices to the symphysis. 5 mm coronal and sagittal reformats were performed, with additional 7 mm MIP reformats through the lungs. For radiation dose reduction, the following was used: automated exposure control, adjustment of mA and/or kV according to patient size. COMPARISON: [facility], CT, CT CHEST ABDOMEN PELVIS WITH CONTRAST, 08/28/2024, 15:23. [facility], CT, CT ABDOMEN PELVIS WITH CONTRAST, 10/04/2024, 13:13. FINDINGS: Image quality: Excellent. CHEST: Lower Neck: No enlarged lymph nodes. Thyroid: No thyroid nodules which require sonographic follow up, per consensus guidelines. Axillae: No enlarged lymph nodes. Chest Wall: Unremarkable. Lungs and Pleura: No pneumothorax or pleural effusions. Centrilobular emphysematous changes are seen. These are more prominent at the lung apices than at the lung bases. No consolidation or suspicious nodules. Heart: Heart size is normal. No pericardial effusion. At least moderate coronary artery calcification can be seen. Thoracic Vessels: The aorta and pulmonary arteries demonstrate normal size. Atherosclerotic calcification is noted. Mediastinum and Ainsley: No enlarged lymph nodes. Esophagus: No wall thickening. No hiatal hernia. ABDOMEN: Liver: No solid mass. Simple liver cysts are seen. Throughout the liver, there are additional low-density lesion seen, which are too small to definitively characterize. Gallbladder: No radiopaque gallstones or wall thickening. Biliary ducts: No biliary dilation. Pancreas: The pancreatic duct is dilated within the head of the pancreas, measuring 5-6 mm. Spleen: Size is within normal limits. Adrenal Glands: No adrenal nodules. Kidneys and Ureters: No hydronephrosis. No solid mass. No complex renal cystic lesion which requires follow up. Stomach and Bowel: Normal colonic caliber, without significant wall thickening. No dilated loops of small bowel are seen. Peritoneum: There is a small amount of free fluid again seen layering within the pelvis, similar to priors. No free air. Ventral Wall: No significant ventral hernia. Abdominal Nodes: No retroperitoneal or mesenteric adenopathy by size criteria. Vessels: There is a patent bilateral aortoiliac stent graft. The left external iliac artery is deviated medially. PELVIS: Pelvic Organs: Unremarkable. Bladder: The bladder is deviated to the right. Pelvic Nodes: No enlarged lymph nodes. Miscellaneous: No inguinal hernias are seen. A left pelvic sidewall mass is again seen, measuring 15 x 10.4 cm in greatest axial dimension, with a craniocaudal extent of 19 cm. The left femoral vein demonstrates an improved appearance. Bones: No aggressive osseous abnormality. Age-appropriate bony degenerative changes are seen. IMPRESSION: 19 cm left pelvic sidewall mass, with associated mass effect upon the external iliac artery and the bladder. The left femoral vein now demonstrates an improved appearance. A small amount of free pelvic fluid is again seen. Additional findings: At least moderate coronary artery calcification Emphysematous change Simple liver cysts, with additional low-density lesions, too small to characterize Stable dilatation of the pancreatic duct Aorto bi-iliac stent graft, patent Dictated by: Heath Yang M.D. on 11/07/2024 at 11:53 ECG Data Attestation: I personally reviewed and interpreted this ECG as follows: Interpretation: Normal sinus rhythm rate 106 LA interval 178 QRS 86 QTC 451 no ischemia similar to previous EKGs MDM Narrative Medical decision making narrative: MDM CC: Weak fever Complicating co-morbidities: Undergoing chemotherapy osteosarcoma previous DVT Data collected from: and EMS Medical records reviewed: ED records available minimal records available Differential considered: Neutropenic fever sepsis, metastasis Exam documented above, pertinent findings include: Chronically ill cachectic elderly 74-year-old male, palpable mass in abdomen appears uncomfortable I mucous membranes Lab Test results independently reviewed as above. Pertinent findings: Pancytopenia: WBC 0.1 hemoglobin 6.5 hematocrit 19 platelets 6 Sodium 120 potassium 3.9 chloride 94 carbon dioxide 24 BUN 20 creatinine 0.8 Glucose 155 Lactate 3.7-->1.2 Bilirubin liver enzymes within normal limits Urinalysis positive for nitrates Independently reviewed EKG as above Sinus rhythm no fever Imaging studies independently reviewed: CT chest abdomen pelvis large pelvic mass with mass effect on iliac artery and bladder femoral vein shows improvement Consultations: Oncology [facility] not on-call until 5:[address] Ledezma updated on patient's symptoms test results aware the Oncology unavailable, kindly accepts patient Treatments: Sepsis fluids Zosyn vancomycin, Mata catheter was ordered, Dilaudid IV Tylenol Re-evaluations: Concern that patient might have urinary retention due to obstruction from large pelvic mass. Mata catheter was placed Discussion: Patient is 74-year-old male history of osteosarcoma large pelvic mass undergoing chemotherapy presenting today with low-grade fever. He was pancytopenic neutropenic with elevated lactate concern for sepsis. He was given IV fluids Zosyn vancomycin, blood cultures are pending. He was given multiple doses of Dilaudid as needed for pain control. Suspect UTI as source, blood cultures pending. Patient's blood pressure is stable held off blood transfusion into consult with Oncology Discharge Plan Departure Patient Disposition: Admitted As Inpatient Clinical Impression: Fever and neutropenia, Pancytopenia, Acute UTI Admit Date/Time: 11/07/24 15:34 Admit Provider: Norris Ledezma V
[2024-11-07 12:08] LABS: Alanine Aminotransferase 54 IU/L (<50); Albumin 2.9 g/dL (3.5-5.0); Albumin Globulin Ratio 1.1 (1.0-2.8); Alkaline Phosphatase 71 U/L (38-126); Aspartate Aminotransferase 42 IU/L (17-59); Bilirubin Total 0.7 mg/dL (0.2-1.3); Blood Urea Nitrogen 20 mg/dL (9-20); Calcium 8.4 mg/dL (8.4-10.2); Carbon Dioxide 24 mmol/L (22-32); Chloride 94 mmol/L (98-107); Estimated Glomerular Filt Rate > 60 mL/min (>60); Globulin 2.7 g/dL (1.7-4.1); Glucose 155 mg/dL (70-99); HEMOLYSIS < 15 (0-50); Lipase 34 U/L (23-300); Potassium 3.9 mmol/L (3.4-5.1); Sodium 126 mmol/L (137-145); Total Protein 5.6 g/dL (6.3-8.2)
--- NOTE | 2024-11-07 12:13 | DI.CT.S_ITS ---
PROCEDURE: CT CHEST ABD PEL W CON INDICATIONS: Osteosarcoma with abdominal pain TECHNIQUE: After the administration of intravenous contrast, 5 mm thick sections acquired from the lung apices to the symphysis. 5 mm coronal and sagittal reformats were performed, with additional 7 mm MIP reformats through the lungs. For radiation dose reduction, the following was used: automated exposure control, adjustment of mA and/or kV according to patient size. COMPARISON: [facility], CT, CT CHEST ABDOMEN PELVIS WITH CONTRAST, 08/28/2024, 15:23. [facility], CT, CT ABDOMEN PELVIS WITH CONTRAST, 10/04/2024, 13:13. FINDINGS: Image quality: Excellent. CHEST: Lower Neck: No enlarged lymph nodes. Thyroid: No thyroid nodules which require sonographic follow up, per consensus guidelines. Axillae: No enlarged lymph nodes. Chest Wall: Unremarkable. Lungs and Pleura: No pneumothorax or pleural effusions. Centrilobular emphysematous changes are seen. These are more prominent at the lung apices than at the lung bases. No consolidation or suspicious nodules. Heart: Heart size is normal. No pericardial effusion. At least moderate coronary artery calcification can be seen. Thoracic Vessels: The aorta and pulmonary arteries demonstrate normal size. Atherosclerotic calcification is noted. Mediastinum and Ainsley: No enlarged lymph nodes. Esophagus: No wall thickening. No hiatal hernia. ABDOMEN: Liver: No solid mass. Simple liver cysts are seen. Throughout the liver, there are additional low-density lesion seen, which are too small to definitively characterize. Gallbladder: No radiopaque gallstones or wall thickening. Biliary ducts: No biliary dilation. Pancreas: The pancreatic duct is dilated within the head of the pancreas, measuring 5-6 mm. Spleen: Size is within normal limits. Adrenal Glands: No adrenal nodules. Kidneys and Ureters: No hydronephrosis. No solid mass. No complex renal cystic lesion which requires follow up. Stomach and Bowel: Normal colonic caliber, without significant wall thickening. No dilated loops of small bowel are seen. Peritoneum: There is a small amount of free fluid again seen layering within the pelvis, similar to priors. No free air. Ventral Wall: No significant ventral hernia. Abdominal Nodes: No retroperitoneal or mesenteric adenopathy by size criteria. Vessels: There is a patent bilateral aortoiliac stent graft. The left external iliac artery is deviated medially. PELVIS: Pelvic Organs: Unremarkable. Bladder: The bladder is deviated to the right. Pelvic Nodes: No enlarged lymph nodes. Miscellaneous: No inguinal hernias are seen. A left pelvic sidewall mass is again seen, measuring 15 x 10.4 cm in greatest axial dimension, with a craniocaudal extent of 19 cm. The left femoral vein demonstrates an improved appearance. Bones: No aggressive osseous abnormality. Age-appropriate bony degenerative changes are seen. IMPRESSION: 19 cm left pelvic sidewall mass, with associated mass effect upon the external iliac artery and the bladder. The left femoral vein now demonstrates an improved appearance. A small amount of free pelvic fluid is again seen. Additional findings: At least moderate coronary artery calcification Emphysematous change Simple liver cysts, with additional low-density lesions, too small to characterize Stable dilatation of the pancreatic duct Aorto bi-iliac stent graft, patent Dictated by: Heath Yang M.D. on 11/07/2024 at 11:53 Approved by: Heath Yang M.D. on 11/07/2024 at 12:00
[2024-11-07] MEDS: HYDROMORPHONE 1 MG INJ IV ×3 (12:22→20:33)
[2024-11-07] MEDS: SODIUM CHLORIDE 0.9% 1,000 ML 1000 ML IV (12:22)
[2024-11-07 12:27] LABS: Lactate (Lactic Acid) 3.7 mmol/L (0.7-2.1)
[2024-11-07 12:27] LABS: Add Manual Diff / Slide Review NO; Basophils Absolute Auto 0 /uL (0-100); Eosinophils Absolute Auto 0 /uL (0-450); Eosinophils Percent Auto 0.6 % (2-4); Lymphocytes Absolute Auto 100 /uL (1100-4500); Lymphocytes Percent Auto 95.4 % (25-40); Mean Corpuscular HGB Conc 34.3 % (30-36); Mean Corpuscular Hemoglobin 28.4 PG (26-34); Monocytes Absolute Auto 0 /uL (0-900); Monocytes Percent Auto 3.7 % (3-14); Neutrophils Absolute Auto 0 /uL (1500-7000); Neutrophils Percent Auto 0.3 % (50-75); Red Blood Cell Count 2.29 X10^6/uL (4.5-5.9); Red Cell Distribution Width 17.5 % (11.6-14.8)
[2024-11-07 12:30] LABS: Hemoglobin 6.5 g/dL (13.5-17.5); Platelet Count 6 X10^3/uL (150-400)
[2024-11-07 12:51] LABS: White Blood Cell Count 0.1 X10^3/uL (4.5-11.0)
[2024-11-07 12:53] LABS: Anisocytosis 2+; Poikilocytosis 1+
[2024-11-07] MEDS: LIDOCAINE 2% (GLYDO) 6 ML GEL TOP (12:56)
[2024-11-07 13:32] LABS: Urine Volume 10mL (spun)
[2024-11-07 13:33] LABS: Bacteria Urine Many (>30); RBC Urine 10-30/HPF (0-5/HPF); Squamous Epithelial Cell Urine 0-1 /HPF (0-5/HPF); WBC Urine 1-5/HPF (0-5/HPF)
[2024-11-07 13:55] LABS: Reflexed Lactate in 2 Hours Y
[2024-11-07] MEDS: PIPERACILLIN/TAZO 4.5 GM in SODIUM CHLORIDE 0.9% 100 ML IV (14:10)
[2024-11-07] MEDS: ACETAMINOPHEN IV 1,000 MG/100 ML VIAL 400 MG IV (14:12)
[2024-11-07] MEDS: SODIUM CHLORIDE 0.9% 1,000 ML 100 ML IV (14:24)
[2024-11-07 14:30] LABS: Lactate 2HR (Lactic Acid Rflx) 1.2 mmol/L (0.7-2.1)
[2024-11-07] MEDS: VANCOMYCIN 1,250 MG/250 ML PIGGYBACK 250 MG IV (14:44)
--- NOTE | 2024-11-07 16:27 | P.HP_ITS ---
History of Present Illness History of Present Illness Date Patient Seen: 11/07/24 Time Patient Seen: 15:55 Chief complaint: Abd pain-hx osteosarcoma Narrative: 74-year-old man under the primary care of Dr. Escobar called her on, followed by Dr. 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 History is obtained from the patient in a limited degree and also from his life partner Thalia veras by phone. His last chemotherapy was October 27. He has been weak since then but became febrile and confused with temperature of 100? in the last 1-2 days. He describes difficulty urinating and experienced urinary retention with a Mata catheter. He states he has had some difficulty with urination in the past few days. He was given IV piperacillin/tazobactam and vancomycin, IV fluids in the emergency department with serum lactate improving from 3.7-1.2. He was given multiple doses of IV Dilaudid for pain control. [facility]MERLY [facility] Medical History Abdominal aortic aneurysm (AAA) (2018) Anxiety (Unknown) Aortic stenosis (2018) Chickenpox Deep vein thrombosis (2018) Femoral artery aneurysm (2018) Measles Migraines (Unknown) Mumps Substance abuse (Unknown) Surgical History Hx of aortic aneurysm repair (08/2017) Hx of surgical procedure (08/2017) Family History Sister Age: 84 Lymphoma Father No problems noted. Mother No problems noted. Social History Smoking Status: Current some day smoker Meds Home Medications and Allergies Home Medications Medication Instructions Recorded Confirmed Type aspirin 325 mg tablet 325 mg PO DAILY 06/22/19 06/22/19 History oxycodone-acetaminophen 5 mg-325 1 tab PO Q6H PRN pain #60 tabs 04/22/24 Rx mg tablet polyethylene glycol 3350 17 17 g PO BID #850 grams 04/22/24 Rx gram/dose oral powder (Miralax) Allergies Allergy/AdvReac Type Severity Reaction Status Date / Time prochlorperazine Allergy Unconscious Verified 11/07/24 11:53 [From Compazine] Review of Systems Review of Systems ROS: Yes All systems reviewed with the patient and are negative except as otherwise documented Exam Vital Signs (past 8 hours): - 11/07/24 11:40 11/07/24 11:44 11/07/24 11:44 Temperature 98.7 F Pulse Rate 108 H 108 H Respiratory Rate 18 Blood Pressure 93/57 L 93/57 L Pulse Oximetry 99 99 Oxygen Delivery Method Room Air 11/07/24 12:00 11/07/24 12:00 11/07/24 12:36 Temperature Pulse Rate 106 H 104 H Respiratory Rate 19 Blood Pressure 108/61 Pulse Oximetry 96 Oxygen Delivery Method 11/07/24 12:38 11/07/24 12:38 11/07/24 13:00 Temperature Pulse Rate 104 H 105 H Respiratory Rate 18 24 Blood Pressure 109/65 Pulse Oximetry 99 96 Oxygen Delivery Method Room Air 11/07/24 13:00 11/07/24 13:30 11/07/24 13:30 Temperature Pulse Rate 105 H Respiratory Rate 18 Blood Pressure 124/58 L 116/69 Pulse Oximetry 99 Oxygen Delivery Method 11/07/24 14:00 11/07/24 14:21 11/07/24 14:21 Temperature Pulse Rate 104 H 110 H Respiratory Rate 21 20 Blood Pressure 102/57 L Pulse Oximetry 97 99 Oxygen Delivery Method 11/07/24 14:30 11/07/24 14:30 11/07/24 15:00 Temperature Pulse Rate 110 H 122 H Respiratory Rate 20 17 Blood Pressure 92/56 L Pulse Oximetry 98 Oxygen Delivery Method 11/07/24 15:00 11/07/24 15:30 11/07/24 15:30 Temperature Pulse Rate 109 H Respiratory Rate 16 Blood Pressure 106/68 102/62 Pulse Oximetry Oxygen Delivery Method 11/07/24 16:00 11/07/24 16:00 Temperature Pulse Rate 95 H Respiratory Rate 17 Blood Pressure 105/60 Pulse Oximetry Oxygen Delivery Method Oxygen Delivery Method Room Air Narrative Exam Narrative: GENERAL: This is a cachectic-appearing male patient, confused, otherwise calm but irritated by a need to urinate despite his Mata catheter, otherwise in no apparent distress. HEAD: Atraumatic. Normocephalic. No temporal or scalp tenderness. EYES: Pupils equal round and reactive. Extraocular motions intact. No scleral icterus. No injection or drainage. ENT: Mucous membranes pink and moist. NECK: Trachea midline. No JVD, bruits or lymphadenopathy. Supple, nontender, no meningeal signs. CARDIOVASCULAR: Regular rate and rhythm without murmurs, gallops, or rubs. RESPIRATORY: Clear to auscultation. GASTROINTESTINAL: Abdomen soft, non-tender, nondistended. Mata catheer in place. EXTREMITIES: No clubbing, cyanosis, or edema. BACK: Nontender without deformity or crepitance. No flank tenderness. NEUROLOGIC: Alert, oriented to person and place, unsure of date, day month or year, speech fluent, full upper and lower motor strength, no focal deficits evident. DERMATOLOGIC: No rashes or skin lesions. Objective Imaging Chest abdomen pelvis CT with contrast 11/07/2024:: Radiologist's impression: 19 cm left pelvic sidewall mass, with associated mass effect upon the external iliac artery and the bladder. The left femoral vein now demonstrates an improved appearance. A small amount of free pelvic fluid is again seen. Additional findings: At least moderate coronary artery calcification Emphysematous change Simple liver cysts, with additional low-density lesions, too small to characterize Stable dilatation of the pancreatic duct Aorto bi-iliac stent graft, patent Labs 11/07/24 12:19 11/07/24 11:40 Labs: Laboratory Results - last 24 hr 11/07/24 11/07/24 11/07/24 11:40 12:19 13:10 WBC 0.1 L* RBC 2.29 L Hgb 6.5 L* Hct 19.0 L* MCV 83.0 MCH 28.4 MCHC 34.3 RDW 17.5 H Plt Count 6 L* Neut % (Auto) 0.3 L Lymph % (Auto) 95.4 H [place] % (Auto) 3.7 Eos % (Auto) 0.6 L Baso % (Auto) 0.0 Neut # (Auto) 0 L Lymph # (Auto) 100 L [place] # (Auto) 0 Eos # (Auto) 0 Baso # (Auto) 0 RBC Morphology Not Reportable Poikilocytosis 1+ H Anisocytosis 2+ H Sodium 126 L Potassium 3.9 Chloride 94 L Carbon Dioxide 24 BUN 20 Creatinine 0.87 Estimated GFR > 60 BUN/Creatinine Ratio 23.0 H Glucose 155 H Lactate 3.7 H Calcium 8.4 Total Bilirubin 0.7 AST 42 ALT 54 H Alkaline Phosphatase 71 Total Protein 5.6 L Albumin 2.9 L Globulin 2.7 Albumin/Globulin Ratio 1.1 Lipase 34 Urine RBC 10-30/hpf H Urine WBC 1-5/hpf Ur Squamous Epith Cells 0-1 /hpf Urine Bacteria Many (>30) H Vol Urine Centrifuged 10ml (spun) Blood Type Antibody Screen 11/07/24 13:55 WBC RBC Hgb Hct MCV MCH MCHC RDW Plt Count Neut % (Auto) Lymph % (Auto) Ev[place]eline % (Auto) Eos % (Auto) Baso % (Auto) Neut # (Auto) Lymph # (Auto) [place] # (Auto) Eos # (Auto) Baso # (Auto) RBC Morphology Poikilocytosis Anisocytosis Sodium Potassium Chloride Carbon Dioxide BUN Creatinine Estimated GFR BUN/Creatinine Ratio Glucose Lactate 1.2 Calcium Total Bilirubin AST ALT Alkaline Phosphatase Total Protein Albumin Globulin Albumin/Globulin Ratio Lipase Urine RBC Urine WBC Ur Squamous Epith Cells Urine Bacteria Vol Urine Centrifuged Blood Type O Positive Antibody Screen Negative Assessment & Plan Assessment & Plan narrative: 1. Neutropenic fever. Etiology unclear. UTI suspected. No apparent infiltrates on imaging though with severe neutropenia treat empirically with IV piperacillin/tazobactam plus vancomycin for pneumonia, gastrointestinal and urinary pathogens. Respiratory panel pending. Consider urinary infection and followup blood and urine cultures. 2. Pancytopenia. a. Neutropenia. Place on neutropenic precautions. b. Severe anemia. Transfuse 1 unit of irradiated packed red blood cells. c. Severe thrombocytopenia. No bleeding present. Transfuse 6 pack of irradiated platelets. 3. Acute metabolic encephalopathy. Monitor with treatment. 4. Leiomyosarcoma. 5. Elevated serum lactate due to dehydration, corrected and normalized with IV hydration in the emergency department. 6. Severe protein calorie malnutrition. 7. History of ADD. Plan: -admit to inpatient -IV piperacillin/tazobactam plus azithromycin -follow cultures -IV hydration -nutritional support -irradiated packed red blood cells and platelet transfusions -monitor blood counts daily DVT prophylaxis: Contraindicated given severe thrombocytopenia Code status: Full code. This is reviewed with the patient on admission. His life partner of over 20 years [employer] phone [phone] is involved with his care but does not have formal durable power of immigration attorney. He has siblings that she states he does not wish in his life. He has no children. Quality MIPS - Admit I confirm the patient?s Advance Care Plan is present, Code status is documented, Surrogate decision maker is in patient?s record [If Yes, STOP here]: Yes MIPS - Meds 'Current medications' to include all prescriptions, [id number] products, herbals, cannabis/cannabidiol products, and vitamin/mineral/dietary (nutritional) supplements. I have utilized all available resources to obtain, update, or review the patient?s current medications. [If Yes, STOP here]: Yes PROFEE Well Tester Document charge(s): No Charge Codes Initial inpatient/observation care: 16599
[2024-11-07] MEDS: DEXTROSE 5%-0.45% NS 1,000 ML 100 ML IV (16:42)
[2024-11-07 17:13] LABS: Adenovirus Not Detected (Not Detect); B. parapertussis Not Detected (Not Detecte); Bordetella pertussis Not Detected (Not Detect); Chlamydophila pneumoniae Not Detected (Not Detect); Coronavirus 229E Not Detected (Not Detect); Coronavirus HKU1 Not Detected (Not Detect); Coronavirus NL 63 Not Detected (Not Detect); Coronavirus OC43 Not Detected (Not Detect); Human Metapneumovirus Not Detected (Not Detect); Human Rhinovirus/Enterovirus Not Detected (Not Detect); Influenza A Not Detected (Not Detect); Influenza B Not Detected (Not Detect); Mycoplasma pneumoniae Not Detected (Not Detect); Parainfluenza Virus 1 Not Detected (Not Detect); Parainfluenza Virus 2 Not Detected (Not Detect); Parainfluenza Virus 3 Not Detected (Not Detect); Parainfluenza Virus 4 Not Detected (Not Detect); Respiratory Syncytial Virus Not Detected (Not Detect); SARS- CoV-2 Not Detected (Not Detecte)
[2024-11-07] MEDS: VANCOMYCIN 1,000 MG in SODIUM CHLORIDE 0.9% 250 ML 250 MG IV (17:20)
[2024-11-07] MEDS: PIPERACILLIN/TAZO 3.375 GM in SODIUM CHLORIDE 0.9% 100 ML IV (18:42)
[2024-11-07 19:04] LABS: MRSA (Nasal) PCR NOT DETECTED (Not Detect)
[2024-11-07 23:20] LABS: Acinetobacter calcoa-baumannii Not Detected (Not Detect); Bacteroides fragilis Not Detected (Not Detect); CTX-M Resistance Not Detected (Not Detect); Candida albicans Not Detected (Not Detect); Candida auris Not Detected (Not Detect); Candida glabrata Not Detected (Not Detect); Candida krusei Not Detected (Not Detect); Candida parapsilosis Not Detected (Not Detect); Candida tropicalis Not Detected (Not Detect); Cryptococcus neoformans/gatti Not Detected (Not Detect); Enterobacter cloacae complex Not Detected (Not Detect); Enterobacterales Detected (Not Detect); Enterococcus faecalis Not Detected (Not Detect); Enterococcus faecium Not Detected (Not Detect); Haemophilus influenzae Not Detected (Not Detect); IMP Resistance Not Detected (Not Detect); KPC Resistance Not Detected (Not Detect); Klebsiella aerogenes Not Detected (Not Detect); Listeria monocytogenes Not Detected (Not Detect); NDM Resistance Not Detected (Not Detect); Neisseria meningitidis Not Detected (Not Detect); OXA-48-like Resistance Not Detected (Not Detect); Proteus species Not Detected (Not Detect); Pseudomonas aeruginosa Not Detected (Not Detect); Salmonella species Not Detected (Not Detect); Serratia marcescens Not Detected (Not Detect); Staphylococcus epidermidis Not Detected (Not Detect); Staphylococcus lugdunensis Not Detected (Not Detect); Staphylococcus species Not Detected (Not Detect); Stenotrophomonas maltophilia Not Detected (Not Detect); Streptococcus agalactiae (Gr B Not Detected (Not Detect); Streptococcus pneumonia Not Detected (Not Detect); Streptococcus pyogenes (Gr A) Not Detected (Not Detect); Streptococcus species Not Detected (Not Detect); VIM Resistance Not Detected (Not Detect); mcr-1 Resistance Not Detected (Not Detect)
[2024-11-08] VITALS (19 sets, daily range): BP systolic 103–124; BP diastolic 56–81; PULSE 92–109; RESP 15–22; TEMP 36.9–37.8; O2SAT 95–100
[2024-11-08] MEDS: PIPERACILLIN/TAZO 3.375 GM in SODIUM CHLORIDE 0.9% 100 ML IV ×3 (02:22→18:24)
[2024-11-08] MEDS: DEXTROSE 5%-0.45% NS 1,000 ML 100 ML IV (03:00)
[2024-11-08] MEDS: HYDROMORPHONE 1 MG INJ IV ×2 (03:14→08:57)
[2024-11-08] MEDS: VANCOMYCIN 1,000 MG in SODIUM CHLORIDE 0.9% 250 ML 250 MG IV ×2 (05:03→16:56)
[2024-11-08 10:20] LABS: Add Manual Diff / Slide Review NO; Basophils Absolute Auto 0 /uL (0-100); Eosinophils Absolute Auto 0 /uL (0-450); Eosinophils Percent Auto 0.3 % (2-4); Lymphocytes Absolute Auto 200 /uL (1100-4500); Lymphocytes Percent Auto 89.7 % (25-40); Mean Corpuscular HGB Conc 34.6 % (30-36); Mean Corpuscular Volume 83.8 fL (80-100); Monocytes Absolute Auto 0 /uL (0-900); Monocytes Percent Auto 4.7 % (3-14); Neutrophils Absolute Auto 0 /uL (1500-7000); Neutrophils Percent Auto 5.3 % (50-75); Red Blood Cell Count 2.25 X10^6/uL (4.5-5.9); Red Cell Distribution Width 16.8 % (11.6-14.8)
[2024-11-08 10:21] LABS: Hemoglobin 6.5 g/dL (13.5-17.5)
[2024-11-08 10:22] LABS: Hematocrit 18.9 % (41-53); Platelet Count 19 X10^3/uL (150-400); White Blood Cell Count 0.2 X10^3/uL (4.5-11.0)
[2024-11-08 10:26] LABS: BUN Creatinine Ratio 22.9 (6-22); Blood Urea Nitrogen 19 mg/dL (9-20); Calcium 8.2 mg/dL (8.4-10.2); Carbon Dioxide 21 mmol/L (22-32); Chloride 97 mmol/L (98-107); Estimated Glomerular Filt Rate > 60 mL/min (>60); Glucose 135 mg/dL (70-99); HEMOLYSIS < 15 (0-50); Potassium 3.8 mmol/L (3.4-5.1); Sodium 124 mmol/L (137-145)
[2024-11-08 10:32] LABS: Rouleaux 3+
[2024-11-08 10:33] LABS: Anisocytosis 2+
--- NOTE | 2024-11-08 10:57 | P.PN_ITS ---
Subjective Subjective Date Patient Seen: 11/08/24 Time Patient Seen: 08:25 Interval history: Narrative: 74-year-old man under the primary care of Dr. Escobar called her on, followed by Dr. 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 History is obtained from the patient in a limited degree and also from his life partner Thalia veras by phone. His last chemotherapy was October 27. He has been weak since then but became febrile and confused with temperature of 100? in the last 1-2 days. He describes difficulty urinating and experienced urinary retention with a Mata catheter. He states he has had some difficulty with urination in the past few days. He was given IV piperacillin/tazobactam and vancomycin, IV fluids in the emergency department with serum lactate improving from 3.7-1.2. He was given multiple doses of IV Dilaudid for pain control. Interim history: Five hundred eleven: Patient states considerable pain. Administer pain medicine appears more comfortable. He appears unable to decide on care at this point, but agreeable to blood product transfusions and antibiotics. Exam Vital Signs (past 8 hours): - 11/08/24 03:05 11/08/24 04:00 11/08/24 04:55 Temperature 99.1 F 98.9 F 99.6 F Pulse Rate 109 H 98 H 105 H Respiratory Rate 16 19 22 Blood Pressure 124/73 109/76 113/74 Pulse Oximetry 98 Oxygen Delivery Method Room Air Oxygen Flow Rate 0 Narrative Exam Narrative: GENERAL: This is a cachectic-appearing male patient, calm, appears uncomfortable, in no apparent distress. EYES: Pupils equal round and reactive. Extraocular motions intact. No scleral icterus. No injection or drainage. ENT: Mucous membranes pink and moist. NECK: Trachea midline. No JVD, bruits or lymphadenopathy. Supple, nontender, no meningeal signs. CARDIOVASCULAR: Regular rate and rhythm without murmurs, gallops, or rubs. RESPIRATORY: Clear to auscultation. GASTROINTESTINAL: Abdomen soft, non-tender, nondistended. Mata catheer in place. EXTREMITIES: No clubbing, cyanosis, or edema. NEUROLOGIC: Alert, oriented to person and place, unsure of date, day month or year, speech fluent, full upper and lower motor strength, no focal deficits evident. DERMATOLOGIC: No rashes or skin lesions. Objective Imaging Chest abdomen pelvis CT with contrast 11/07/2024:: Radiologist's impression: 19 cm left pelvic sidewall mass, with associated mass effect upon the external iliac artery and the bladder. The left femoral vein now demonstrates an improved appearance. A small amount of free pelvic fluid is again seen. Additional findings: At least moderate coronary artery calcification Emphysematous change Simple liver cysts, with additional low-density lesions, too small to characterize Stable dilatation of the pancreatic duct Aorto bi-iliac stent graft, patent Labs 11/08/24 09:59 11/08/24 09:59 Labs: Laboratory Results - last 24 hr 11/07/24 11/07/24 11/07/24 10:35 11:40 12:19 WBC 0.1 L* RBC 2.29 L Hgb 6.5 L* Hct 19.0 L* MCV 83.0 MCH 28.4 MCHC 34.3 RDW 17.5 H Plt Count 6 L* Neut % (Auto) 0.3 L Lymph % (Auto) 95.4 H [place] % (Auto) 3.7 Eos % (Auto) 0.6 L Baso % (Auto) 0.0 Neut # (Auto) 0 L Lymph # (Auto) 100 L [place] # (Auto) 0 Eos # (Auto) 0 Baso # (Auto) 0 RBC Morphology Not Reportable Poikilocytosis 1+ H Anisocytosis 2+ H Rouleaux Sodium 126 L Potassium 3.9 Chloride 94 L Carbon Dioxide 24 BUN 20 Creatinine 0.87 Estimated GFR > 60 BUN/Creatinine Ratio 23.0 H Glucose 155 H Lactate 3.7 H Calcium 8.4 Total Bilirubin 0.7 AST 42 ALT 54 H Alkaline Phosphatase 71 Total Protein 5.6 L Albumin 2.9 L Globulin 2.7 Albumin/Globulin Ratio 1.1 Lipase 34 Urine RBC Urine WBC Ur Squamous Epith Cells Urine Bacteria Vol Urine Centrifuged Nasal Screen MRSA (PCR) Not detected A.calcoaceticus-baumannii cmplx PCR Chlamy pneumoniae PCR Adenovirus (PCR) Bacteroides fragilis B. pertussis DNA (PCR) B.parapertussis DNA PCR Rayna albicans (PCR) Rayna auris (PCR) C. glabrata (PCR) C. krusei (PCR) C. parapsilosis (PCR) C. tropicalis (PCR) Coronavirus OC43 (PCR) Coronavirus HKU1 (PCR) Coronavirus 229E (PCR) SARS-CoV-2 (PCR) Coronavirus NL63 (PCR) C. neoform/gattii (PCR) Enterobacterales (PCR) E. cloacae complex PCR Enterococc faecalis PCR Enterococc faecium PCR E. coli (PCR) H. influenzae (PCR) Human Metapneumovir PCR Influenza Type A (PCR) Influenza Type B (PCR) Klebsiella aerogenes (PCR) Klebsiella oxytoca PCR Klebsiella pneumoniae List. monocytogenes PCR M. pneumoniae (PCR) N. meningitidis (PCR) Parainfluenza 1 (PCR) Parainfluenza 2 (PCR) Parainfluenza 3 (PCR) Parainfluenza 4 (PCR) Proteus species (PCR) RSV (PCR) Entero/Rhino (PCR) Salmonella spp. (PCR) Serratia marcescens PCR Staphylococcus sp PCR Staph aureus (PCR) mecA/C & MREJ Resist Gene mecA/C-Methicil Resis Gene mcr-1 Colistin Res Gene PCR Staph epidermidis (PCR) Staph lugdunensis PCR S. maltophilia (PCR) Streptococcus sp PCR Group A Strep (PCR) Strep agalactiae (PCR) Strep pneumoniae (PCR) P. aeruginosa (PCR) Ankita/B-Vanco Res Genes blaIMP Car res Gene PCR KPC-Carbap Res Gene PCR blaNDM Car Res Gene PCR OXA-48 Carbapenem Resis Gene (PCR) blaVIM Car Res Gene PCR CTX-M Gene Resistance (PCR) Blood Type Antibody Screen Crossmatch 11/07/24 11/07/24 11/07/24 13:10 13:55 16:22 WBC RBC Hgb Hct MCV MCH MCHC RDW Plt Count Neut % (Auto) Lymph % (Auto) [place] % (Auto) Eos % (Auto) Baso % (Auto) Neut # (Auto) Lymph # (Auto) [place] # (Auto) Eos # (Auto) Baso # (Auto) RBC Morphology Poikilocytosis Anisocytosis Rouleaux Sodium Potassium Chloride Carbon Dioxide BUN Creatinine Estimated GFR BUN/Creatinine Ratio Glucose Lactate 1.2 Calcium Total Bilirubin AST ALT Alkaline Phosphatase Total Protein Albumin Globulin Albumin/Globulin Ratio Lipase Urine RBC 10-30/hpf H Urine WBC 1-5/hpf Ur Squamous Epith Cells 0-1 /hpf Urine Bacteria Many (>30) H Vol Urine Centrifuged 10ml (spun) Nasal Screen MRSA (PCR) A.calcoaceticus-baumannii cmplx PCR Chlamy pneumoniae PCR Not detected Adenovirus (PCR) Not detected Bacteroides fragilis B. pertussis DNA (PCR) Not detected B.parapertussis DNA PCR Not detected Rayna albicans (PCR) Rayna auris (PCR) C. glabrata (PCR) C. krusei (PCR) C. parapsilosis (PCR) C. tropicalis (PCR) Coronavirus OC43 (PCR) Not detected Coronavirus HKU1 (PCR) Not detected Coronavirus 229E (PCR) Not detected SARS-CoV-2 (PCR) Not detected Coronavirus NL63 (PCR) Not detected C. neoform/gattii (PCR) Enterobacterales (PCR) E. cloacae complex PCR Enterococc faecalis PCR Enterococc faecium PCR E. coli (PCR) H. influenzae (PCR) Human Metapneumovir PCR Not detected Influenza Type A (PCR) Not detected Influenza Type B (PCR) Not detected Klebsiella aerogenes (PCR) Klebsiella oxytoca PCR Klebsiella pneumoniae List. monocytogenes PCR M. pneumoniae (PCR) Not detected N. meningitidis (PCR) Parainfluenza 1 (PCR) Not detected Parainfluenza 2 (PCR) Not detected Parainfluenza 3 (PCR) Not detected Parainfluenza 4 (PCR) Not detected Proteus species (PCR) RSV (PCR) Not detected Entero/Rhino (PCR) Not detected Salmonella spp. (PCR) Serratia marcescens PCR Staphylococcus sp PCR Staph aureus (PCR) mecA/C & MREJ Resist Gene mecA/C-Methicil Resis Gene mcr-1 Colistin Res Gene PCR Staph epidermidis (PCR) Staph lugdunensis PCR S. maltophilia (PCR) Streptococcus sp PCR Group A Strep (PCR) Strep agalactiae (PCR) Strep pneumoniae (PCR) P. aeruginosa (PCR) Ankita/B-Vanco Res Genes blaIMP Car res Gene PCR KPC-Carbap Res Gene PCR blaNDM Car Res Gene PCR OXA-48 Carbapenem Resis Gene (PCR) blaVIM Car Res Gene PCR CTX-M Gene Resistance (PCR) Blood Type O Positive Antibody Screen Negative Crossmatch See Detail 11/07/24 11/08/24 21:41 09:59 WBC 0.2 L* D RBC 2.25 L Hgb 6.5 L* Hct 18.9 L* MCV 83.8 MCH 29.0 MCHC 34.6 RDW 16.8 H Plt Count 19 L* Neut % (Auto) 5.3 L Lymph % (Auto) 89.7 H [place] % (Auto) 4.7 Eos % (Auto) 0.3 L Baso % (Auto) 0.0 Neut # (Auto) 0 L Lymph # (Auto) 200 L [place] # (Auto) 0 Eos # (Auto) 0 Baso # (Auto) 0 RBC Morphology Not Reportable Poikilocytosis Anisocytosis 2+ H Rouleaux 3+ H Sodium 124 L Potassium 3.8 Chloride 97 L Carbon Dioxide 21 L BUN 19 Creatinine 0.83 Estimated GFR > 60 BUN/Creatinine Ratio 22.9 H Glucose 135 H Lactate Calcium 8.2 L Total Bilirubin AST ALT Alkaline Phosphatase Total Protein Albumin Globulin Albumin/Globulin Ratio Lipase Urine RBC Urine WBC Ur Squamous Epith Cells Urine Bacteria Vol Urine Centrifuged Nasal Screen MRSA (PCR) A.calcoaceticus-baumannii cmplx PCR Not detected Chlamy pneumoniae PCR Adenovirus (PCR) Bacteroides fragilis Not detected B. pertussis DNA (PCR) B.parapertussis DNA PCR Rayna albicans (PCR) Not detected Rayna auris (PCR) Not detected C. glabrata (PCR) Not detected C. krusei (PCR) Not detected C. parapsilosis (PCR) Not detected C. tropicalis (PCR) Not detected Coronavirus OC43 (PCR) Coronavirus HKU1 (PCR) Coronavirus 229E (PCR) SARS-CoV-2 (PCR) Coronavirus NL63 (PCR) C. neoform/gattii (PCR) Not detected Enterobacterales (PCR) Detected E. cloacae complex PCR Not detected Enterococc faecalis PCR Not detected Enterococc faecium PCR Not detected E. coli (PCR) Detected H. influenzae (PCR) Not detected Human Metapneumovir PCR Influenza Type A (PCR) Influenza Type B (PCR) Klebsiella aerogenes (PCR) Not detected Klebsiella oxytoca PCR Not detected Klebsiella pneumoniae Not detected List. monocytogenes PCR Not detected M. pneumoniae (PCR) N. meningitidis (PCR) Not detected Parainfluenza 1 (PCR) Parainfluenza 2 (PCR) Parainfluenza 3 (PCR) Parainfluenza 4 (PCR) Proteus species (PCR) Not detected RSV (PCR) Entero/Rhino (PCR) Salmonella spp. (PCR) Not detected Serratia marcescens PCR Not detected Staphylococcus sp PCR Not detected Staph aureus (PCR) Not detected mecA/C & MREJ Resist Gene Not applicable mecA/C-Methicil Resis Gene Not applicable mcr-1 Colistin Res Gene PCR Not detected Staph epidermidis (PCR) Not detected Staph lugdunensis PCR Not detected S. maltophilia (PCR) Not detected Streptococcus sp PCR Not detected Group A Strep (PCR) Not detected Strep agalactiae (PCR) Not detected Strep pneumoniae (PCR) Not detected P. aeruginosa (PCR) Not detected Ankita/B-Vanco Res Genes Not applicable blaIMP Car res Gene PCR Not detected KPC-Carbap Res Gene PCR Not detected blaNDM Car Res Gene PCR Not detected OXA-48 Carbapenem Resis Gene (PCR) Not detected blaVIM Car Res Gene PCR Not detected CTX-M Gene Resistance (PCR) Not detected Blood Type Antibody Screen Crossmatch [facility] Medical History Abdominal aortic aneurysm (AAA) (2018) Anxiety (Unknown) Aortic stenosis (2018) Chickenpox Deep vein thrombosis (2018) Femoral artery aneurysm (2018) Measles Migraines (Unknown) Mumps Substance abuse (Unknown) Surgical History Hx of aortic aneurysm repair (08/2017) Hx of surgical procedure (08/2017) Family History Sister Age: 84 Lymphoma Father No problems noted. Mother No problems noted. Social History household members: significant other Smoking Status: Current some day smoker alcohol intake: former Assessment & Plan Assessment & Plan narrative: 1. Neutropenic fever with Gram-negative bacteremia with E coli/Enterobacter on PCR panel. UTI suspected. No apparent infiltrates on imaging though with severe neutropenia treat empirically with IV piperacillin/tazobactam plus vancomycin for urinary sources as well as pneumonia, gastrointestinal pathogens. 2. Pancytopenia. a. Neutropenia. Neutropenic precautions. b. Severe anemia. Status post 1 unit packed red blood cell on 11/08. Transfuse 2 unit of irradiated packed red blood cells today. c. Severe thrombocytopenia. Status post platelet transfusion 511. No bleeding present. Transfuse irradiated platelets x 2 today. 3. Acute metabolic encephalopathy. Monitor with treatment. Appears improving, but not clear if he is able to discuss direction of care going forward at this point. 4. Leiomyosarcoma. 5. Elevated serum lactate due to dehydration, corrected and normalized with IV hydration in the emergency department. 6. Severe protein calorie malnutrition. 7. History of ADD. Plan: -IV piperacillin/tazobactam plus vancomycin -follow cultures -IV hydration -nutritional support -irradiated packed red blood cells and platelet transfusions x 2 today -monitor blood counts daily DVT prophylaxis: Contraindicated given severe thrombocytopenia Code status: Full code. This is reviewed with the patient on admission. His life partner of over 20 years [employer] phone [phone] is involved with his care but does not have formal durable power of deputy prosecuting attorney. He has siblings that she states he does not wish in his life. He has no children. Quality VTE Deep Vein Thrombosis/Pulmonary Embolism Present on Admission: No PROFEE Automation Controls Engineer Document charge(s): No Charge Codes Subsequent inpatient/observation care: 53201
[2024-11-08] MEDS: OXYCODONE IR 10 MG TABLET PO ×3 (11:30→22:44)
[2024-11-08] MEDS: ACETAMINOPHEN 325 MG TABLET 650 MG PO (11:56)
[2024-11-08] MEDS: DEXTROSE 5%-0.9% NS 1,000 ML 100 ML IV (12:07)
[2024-11-09] VITALS (11 sets, daily range): BP systolic 97–117; BP diastolic 59–81; PULSE 76–104; RESP 14–20; TEMP 36.3–37.7; O2SAT 91–98
[2024-11-09] MEDS: PIPERACILLIN/TAZO 3.375 GM in SODIUM CHLORIDE 0.9% 100 ML IV ×3 (01:00→18:16)
[2024-11-09] MEDS: HYDROMORPHONE 1 MG INJ IV ×5 (02:10→22:29)
[2024-11-09] MEDS: VANCOMYCIN 1,000 MG in SODIUM CHLORIDE 0.9% 250 ML 250 MG IV ×2 (05:22→17:05)
[2024-11-09 05:29] LABS: BUN Creatinine Ratio 24.7 (6-22); Blood Urea Nitrogen 21 mg/dL (9-20); Calcium 8.4 mg/dL (8.4-10.2); Carbon Dioxide 23 mmol/L (22-32); Chloride 100 mmol/L (98-107); Estimated Glomerular Filt Rate > 60 mL/min (>60); Glucose 136 mg/dL (70-99); HEMOLYSIS < 15 (0-50); Potassium 3.9 mmol/L (3.4-5.1); Sodium 127 mmol/L (137-145)
[2024-11-09 05:38] LABS: Add Manual Diff / Slide Review NO; Basophils Absolute Auto 0 /uL (0-100); Basophils Percent Auto 0.1 % (0-2); Eosinophils Absolute Auto 0 /uL (0-450); Eosinophils Percent Auto 0.3 % (2-4); Hematocrit 23.2 % (41-53); Lymphocytes Absolute Auto 400 /uL (1100-4500); Lymphocytes Percent Auto 82.2 % (25-40); Mean Corpuscular HGB Conc 34.4 % (30-36); Mean Corpuscular Hemoglobin 28.5 PG (26-34); Mean Corpuscular Volume 82.9 fL (80-100); Monocytes Absolute Auto 0 /uL (0-900); Monocytes Percent Auto 3.3 % (3-14); Neutrophils Absolute Auto 100 /uL (1500-7000); Neutrophils Percent Auto 14.1 % (50-75); Platelet Count 50 X10^3/uL (150-400); Red Cell Distribution Width 16.6 % (11.6-14.8)
[2024-11-09] MEDS: OXYCODONE IR 10 MG TABLET PO ×2 (05:41→14:12)
[2024-11-09 05:52] LABS: White Blood Cell Count 0.5 X10^3/uL (4.5-11.0)
--- NOTE | 2024-11-09 07:41 | P.PN_ITS ---
Subjective Subjective Interval history: Summary: 4-year-old man under the primary care of Dr. Escobar called her on, followed by Dr. 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 History is obtained from the patient in a limited degree and also from his life partner Thalia veras by phone. His last chemotherapy was October 27. He has been weak since then but became febrile and confused with temperature of 100? in the last 1-2 days. He describes difficulty urinating and experienced urinary retention with a Mata catheter. He states he has had some difficulty with urination in the past few days. He was given IV piperacillin/tazobactam and vancomycin, IV fluids in the emergency department with serum lactate improving from 3.7-1.2. He was given multiple doses of IV Dilaudid for pain control. Hospital course: S: He is not speaking today, his eyes are open. He appears to be ill, frail, and cachectic. Platelet count is up, white count is still 0.5. Exam Vital Signs (past 8 hours): - 11/09/24 00:00 11/09/24 00:23 11/09/24 00:50 Temperature 99.9 F H 99.8 F H Pulse Rate 104 H 97 H 87 Respiratory Rate 14 18 17 Blood Pressure 105/65 102/59 L 109/64 Pulse Oximetry 91 11/09/24 00:55 11/09/24 03:11 11/09/24 04:00 Temperature 99.4 F 98.2 F Pulse Rate 99 H 80 100 H Respiratory Rate 20 18 15 Blood Pressure 105/65 97/64 108/77 Pulse Oximetry 98 Oxygen Delivery Method Room Air Oxygen Flow Rate 0 Narrative Exam Narrative: Chronically ill and cachectic. Eyes open, but not speaking. Lungs are clear, normal rate and effort. Heart is regular, no murmur gallop or rub. Abdomen is soft, non distended. Extremities are free of edema. Objective Imaging CT scan - abdomen: Radiologist's impression: Chest abdomen pelvis CT with contrast 11/07/2024:: Radiologist's impression: 19 cm left pelvic sidewall mass, with associated mass effect upon the external iliac artery and the bladder. The left femoral vein now demonstrates an improved appearance. A small amount of free pelvic fluid is again seen. Additional findings: At least moderate coronary artery calcification Emphysematous change Simple liver cysts, with additional low-density lesions, too small to characterize Stable dilatation of the pancreatic Labs 11/09/24 05:10 11/09/24 05:10 Labs: Laboratory Results - last 24 hr 11/07/24 11/08/24 11/09/24 13:55 09:59 05:10 WBC 0.2 L* D 0.5 L* D RBC 2.25 L 2.80 L Hgb 6.5 L* 8.0 L Hct 18.9 L* 23.2 L MCV 83.8 82.9 MCH 29.0 28.5 MCHC 34.6 34.4 RDW 16.8 H 16.6 H Plt Count 19 L* 50 L Neut % (Auto) 5.3 L 14.1 L Lymph % (Auto) 89.7 H 82.2 H Bulloch % (Auto) 4.7 3.3 Eos % (Auto) 0.3 L 0.3 L Baso % (Auto) 0.0 0.1 Neut # (Auto) 0 L 100 L Lymph # (Auto) 200 L 400 L Bulloch # (Auto) 0 0 Eos # (Auto) 0 0 Baso # (Auto) 0 0 RBC Morphology Not Reportable Anisocytosis 2+ H Rouleaux 3+ H Sodium 124 L 127 L Potassium 3.8 3.9 Chloride 97 L 100 Carbon Dioxide 21 L 23 BUN 19 21 H Creatinine 0.83 0.85 Estimated GFR > 60 > 60 BUN/Creatinine Ratio 22.9 H 24.7 H Glucose 135 H 136 H Calcium 8.2 L 8.4 Blood Type O Positive Antibody Screen Negative Crossmatch See Detail [facility] Medical History Femoral artery aneurysm (2018) Chickenpox Mumps Measles Migraines (Unknown) Substance abuse (Unknown) Anxiety (Unknown) Deep vein thrombosis (2018) Aortic stenosis (2018) Abdominal aortic aneurysm (AAA) (2018) Surgical History Hx of surgical procedure (08/2017) Hx of aortic aneurysm repair (08/2017) Family History Sister Age: 84 Lymphoma Father No problems noted. Mother No problems noted. Social History household members: significant other Smoking Status: Current some day smoker alcohol intake: former Assessment & Plan Assessment & Plan narrative: 1. Neutropenic fever with E coli bacteremia and UTI suspected. Present on admission and active. 2. Pancytopenia. a. Neutropenia. Neutropenic precautions. b. Severe anemia. Status post 1 unit packed red blood cell on 11/08. Transfuse 2 unit of irradiated packed red blood cells today. c. Severe thrombocytopenia. Status post platelet transfusion 511. No bleeding present. Transfuse irradiated platelets x 2 today. 3. Acute metabolic encephalopathy. Monitor with treatment. Appears improving, but not clear if he is able to discuss direction of care going forward at this point. 4. Leiomyosarcoma. 5. Elevated serum lactate due to dehydration, corrected and normalized with IV hydration in the emergency department. 6. Severe protein calorie malnutrition. 7. History of ADD. Plan: -IV piperacillin/tazobactam plus vancomycin -follow cultures -IV hydration -nutritional support -irradiated packed red blood cells and platelet transfusions x 2 today -monitor blood counts daily -discussed with his Oncologist, we will start Granix today. Met with and discovered level of care. She was unsure that he will continue chemotherapy. She was not comfortable changing his code status unless he can participate. They have been common-law partners for 27 years. He has no biologic children. DVT prophylaxis: Contraindicated given severe thrombocytopenia Code status: Full code. This is reviewed with the patient on admission. His life partner of over 20 years [employer] phone [phone] is involved with his care but does not have formal durable power of longwall headgate operator. He has siblings that she states he does not wish in his life. He has no children. Time-Based Coding :: [TOTAL MINUTES] spent with patient and on the chart (including review of chart, obtaining history, exam, reviewing outside data, placing orders, documenting exam and treatment plan, and counseling patient) on [DATE]. Quality VTE Deep Vein Thrombosis/Pulmonary Embolism Present on Admission: No
--- NOTE | 2024-11-09 09:29 | PC.NURSE ---
Addendum entered by Portia Ribeiro R.N. 11/09/24 19:24: 0715 Report given to oncoming RNPantera. Plan of care discussed. Addendum entered by Portia Ribeiro R.N. 11/09/24 18:52: 1852 Call placed to Lab. Vanco trough and peak is scheduled for tomorrow, not today. RN to communicate with oncoming RN. Addendum entered by Portia Ribeiro R.N. 11/09/24 18:02: 1630 Vanco trough collected at this time. Addendum entered by Portia Ribeiro R.N. 11/09/24 14:24: 1424 MD at the bedside, updating patient on plan of care. Original Note: 0730 Report received from nightshift RN. Patient resting, eyes closed at this time. Breaths even and unlabored. Mata noted. Call light within reach and bed in lowest position. 0800 Patient awake and alert. Generalized weakness noted. Patient able to [place]. Patient with minimal verbal communication. Call light within reach and bed in lowest position. 0930 Call placed to lab. MD rounding completed at this time, low urine output discussed. Fluids to be continued. Blood work discussed with MD and per MD patient should be okay with no receiving blood/platelets today. Lab aware.
[2024-11-09] MEDS: DEXTROSE 5%-0.9% NS 1,000 ML 100 ML IV ×2 (10:18→18:56)
--- NOTE | 2024-11-09 13:11 | DIET.CONS ---
Dietary Consultation Note Admission Date: 11/07/2024 15:34 Assessment: 74 y M admitted for fever, pancytopenia, encephalopathy. Dietitian consulted for unintentional weight loss. Per team rounds, hospitalist to have GOC today when spouse comes. PMH of Leiomyosarcoma, last chemo done on 10/27. Presenting with severe protein calorie malnutrition. Spoke to RN, pt with minimal verbal communication at this time, not appropriate for visit. Reports pt isn't eating during admission and is unsure PO intakes are appropriate at this time based on pt presentation, pt would not be able to tolerate ONS today. EMR reviewed. Ht: 177.8 cm Wt: 63.957 kg BMI: 20.2 UBW: 72.575 kg on 04/22/24 (-12% weight loss in 6 months, severe) Last BM: 11/07/24 (11/07/24 16:47) MNA: 8 Derrick Score: 15 Diet: 11/07/24 Dinner General (Regular) Diet Diet Modifications: Nutrition Percent Meal Consumed 0% 11/09/24 09:00 Percent Meal Consumed 0% 11/07/24 18:00 Labs: RBC 2.80 X10^6/uL (4.5-5.9) L 11/09/24 05:10 Hgb 8.0 g/dL (13.5-17.5) L 11/09/24 05:10 Hct 23.2 % (41-53) L 11/09/24 05:10 Creatinine 0.85 mg/dL (0.66-1.25) 11/09/24 05:10 Lactate 1.2 mmol/L (0.7-2.1) 11/07/24 13:55 Nutrition Diagnosis: Severe acute protein calorie malnutrition r/t inadequate oral intakes with increased protein-energy needs in setting of chemo treatments as evidenced by 12% weight loss within 6 months (severe), underweight BMI for age (20.2), leiomyosarcoma and receiving chemo Interventions: -following for GOC/plan of care EER: 1900 kcals (30 kcals/kg per BMI) 100 g protein (1.5 g/kg per chemo, PCM) Monitoring/Evaluations: f/u pending GOC conversation Electronically Signed by: Misty Cervantes 11/09/24 13:11 Clinical Dietitian [address] [place] [address]
[2024-11-09] MEDS: FILGRASTIM-AAFI 300 MCG/0.5 ML SYRINGE SUBCUT (15:52)
--- NOTE | 2024-11-09 16:17 | CM.DANOTE ---
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 Patient admitted INPT for management of: Neutropenic fever with E coli bacteremia and UTI suspected. Severe anemia. Neutropenia. Severe thrombocytopenia. PCP: Dr Escobar, [facility] Payer: MCR Reviewed chart, pt discussed in multidisciplinary rounds this morning. Patient is not alert and oriented. Dr Becker plans to complete goals of care with KIRBY Kori. Attempted contact with SO this afternoon, had to LM on generic automated VM. According to Dr Becker, SO wants to keep patient full code at this time. Patient appears frail and cachectic. Not alert and oriented. patient not shawn to sign DPOA documents currently. Patient has siblings that are not inhis life, no children. CM team will plan to follow clinical course closely. Discharge planning needs are anticipated. Patient has been quite weak since chemo end of September. JAN Glover Discharge Planning/Care Management Discharge Assessment Start: 11/07/24 15:59 Freq: Status: Active Protocol: Document 11/09/24 16:08 ELLA (Rec: 11/09/24 16:17 ELLA Desktop) Discharge Planning Assessment Assigned Aircraft Pilot JAN Flores/Assigned Designee Name Thalia Woods KIRBY Contact Information [phone] Advance Directives? No History Provided By Significant Other,Medical Record Has Patient been admitted in last 30 No days? Prior Living Arrangements RV Household Members significant other Type of transporation used prior to Relies on Others admit Independent with ADL's No Is patient alert and oriented? No Needs Assistance With Bathing,Grooming,Meal Prep, Toileting,Managing Medications ,Home Chores / Shopping Comment Patient has been weak since chemo October 27. Caregiver for Another No Barriers to Discharge Yes Comment Very weak. On chemo for Leiomyosarcoma. KIRBY Vásquez wants patient to remain Full Code. Transportation Arrangement TBD
[2024-11-09 18:08] LABS: Vancomycin Trough 11.9 ug/mL (10-20)
[2024-11-10] VITALS (20 sets, daily range): BP systolic 118–141; BP diastolic 75–90; PULSE 104–151; RESP 8–25; TEMP 35.6–39.3; O2SAT 90–99
[2024-11-10] MEDS: PIPERACILLIN/TAZO 3.375 GM in SODIUM CHLORIDE 0.9% 100 ML IV ×3 (01:44→18:40)
[2024-11-10] MEDS: OXYCODONE IR 10 MG TABLET PO ×4 (03:00→22:41)
[2024-11-10] MEDS: ACETAMINOPHEN 325 MG TABLET 650 MG PO (04:00)
[2024-11-10] MEDS: HYDROMORPHONE 1 MG INJ IV ×2 (04:13→11:01)
[2024-11-10] MEDS: DEXTROSE 5%-0.9% NS 1,000 ML 100 ML IV (05:18)
[2024-11-10] MEDS: IBUPROFEN 400 MG TABLET PO (05:18)
[2024-11-10 05:21] LABS: Hematocrit 23.5 % (41-53); Hemoglobin 8.1 g/dL (13.5-17.5); Mean Corpuscular HGB Conc 34.6 % (30-36); Mean Corpuscular Hemoglobin 29.1 PG (26-34); Mean Corpuscular Volume 84.1 fL (80-100); Red Cell Distribution Width 17.3 % (11.6-14.8)
[2024-11-10 05:25] LABS: BUN Creatinine Ratio 22.5 (6-22); Blood Urea Nitrogen 23 mg/dL (9-20); Calcium 8.2 mg/dL (8.4-10.2); Carbon Dioxide 15 mmol/L (22-32); Chloride 106 mmol/L (98-107); Estimated Glomerular Filt Rate > 60 mL/min (>60); Glucose 172 mg/dL (70-99); HEMOLYSIS < 15 (0-50); Potassium 3.9 mmol/L (3.4-5.1); Sodium 132 mmol/L (137-145)
[2024-11-10 05:34] LABS: Platelet Count 29 X10^3/uL (150-400); White Blood Cell Count 0.4 X10^3/uL (4.5-11.0)
[2024-11-10] MEDS: VANCOMYCIN 1,000 MG in SODIUM CHLORIDE 0.9% 250 ML 250 MG IV (05:49)
[2024-11-10 06:16] LABS: Anisocytosis 1+; Dohle Bodies 1+; Neutrophils Absolute Manual 208 /uL (3000-5900); Total Cells Counted 100; Toxic Vacuolation Present
[2024-11-10 06:17] LABS: Platelet Estimate Decreased on smear
--- NOTE | 2024-11-10 07:42 | P.PN_ITS ---
Subjective Subjective Interval history: S: He was more alert and talkative today. He was still somewhat confused but much more interactive. He denies pain. Exam Vital Signs (past 8 hours): - 11/10/24 04:00 11/10/24 04:19 11/10/24 04:52 Temperature 102 F H 102.5 F H 102.7 F H Pulse Rate 104 H Blood Pressure 129/84 Pulse Oximetry 97 11/10/24 05:18 11/10/24 05:51 Temperature 102.7 F H 100.9 F H Pulse Rate Blood Pressure Pulse Oximetry Fraction of Inspired Oxygen 28 SaO2/FiO2 Ratio 339 Oxygen Delivery Method Nasal Cannula Oxygen Flow Rate 2 Narrative Exam Narrative: Frail, lethargic. More alert, awake, and talking. NAD Lungs are clear, normal rate and effort. Heart is irregular, no murmur gallop or rub. Tachy. Abdomen is soft, non distended. Extremities are free of edema. Objective Labs 11/10/24 04:50 11/10/24 04:50 Labs: Laboratory Results - last 24 hr 11/09/24 11/10/24 16:34 04:50 WBC 0.4 L* RBC 2.80 L Hgb 8.1 L Hct 23.5 L MCV 84.1 MCH 29.1 MCHC 34.6 RDW 17.3 H Plt Count 29 L* Total Counted 100 Seg Neutrophils % 37.0 L Band Neutrophils % 15.0 H Lymphocytes % (Manual) 42.0 Monocytes % (Manual) 6.0 Neutrophils # (Manual) 208 L Toxic Vacuolation Present H Dohle Bodies 1+ H Platelet Estimate Decreased on smear RBC Morphology See below Anisocytosis 1+ H Sodium 132 L Potassium 3.9 Chloride 106 Carbon Dioxide 15 L BUN 23 H Creatinine 1.02 Estimated GFR > 60 BUN/Creatinine Ratio 22.5 H Glucose 172 H Calcium 8.2 L Vancomycin Trough 11.9 PFSH Medical History Femoral artery aneurysm (2018) Chickenpox Mumps Measles Migraines (Unknown) Substance abuse (Unknown) Anxiety (Unknown) Deep vein thrombosis (2018) Aortic stenosis (2018) Abdominal aortic aneurysm (AAA) (2018) Surgical History Hx of surgical procedure (08/2017) Hx of aortic aneurysm repair (08/2017) Family History Sister Age: 84 Lymphoma Father No problems noted. Mother No problems noted. Social History household members: significant other Smoking Status: Current some day smoker alcohol intake: former Assessment & Plan Assessment & Plan narrative: 1. Neutropenic fever with E coli bacteremia and UTI suspected. Present on admission and active. 2. Pancytopenia. Present on admission and active. a. Neutropenia. Neutropenic precautions. b. Severe anemia. Status post 3 unit packed red blood cell. Stable today with hemoglobin of 8. c. Severe thrombocytopenia. Status post platelet transfusion x 3, Active but still improved. 3. Setabolic encephalopathy. Present on admission and improving. 4. Leiomyosarcoma. Present on admission and active. 5. Elevated serum lactate due to dehydration, corrected and normalized with IV hydration in the emergency department. Present on admission and active. 6. Severe protein calorie malnutrition. Present on admission and active. 7. History of ADD. Present on admission and active. 8. Sepsis with source being UTI and bacteremia, present on admission and improving. 9. PAF, new and active. Plan: -Continue IV piperacillin/tazobactam, stop vancomycin -Continue GCSF. -metoprolol 5 IV Q 5 minutes as needed tachycardia and monitor. -monitor urine output, remains low. -IV hydration -nutritional support -irradiated packed red blood cells and platelet transfusions x 2 today -discuss level care and power of litigation attorney associate with and patient when she arrives. Time-Based Coding :: [TOTAL MINUTES] spent with patient and on the chart (including review of chart, obtaining history, exam, reviewing outside data, placing orders, documenting exam and treatment plan, and counseling patient) on [DATE]. Quality VTE Deep Vein Thrombosis/Pulmonary Embolism Present on Admission: No
[2024-11-10] MEDS: METOPROLOL TARTRATE 5 MG/5 ML INJ IV (09:44)
--- NOTE | 2024-11-10 10:24 | DIET.PN1 ---
Dietary Progress Note Assessment: f/u Pt remains full code. Spoke to nursing staff this morning, pt still not taking in any food. Sipping on Gatorade and water. MID TEACHER notes pt coughing with sips of fluid. Discussed the above in rounds- hospitalist reports pt more alert/awake today and plan is to continue to monitor patient for improvements. Ht: 177.8 cm Wt: 63.957 kg BMI: 20.2 UBW: 72.575 kg on 04/22/24 (-12% weight loss in 6 months, severe) Last BM: 11/07/24 (11/07/24 16:47) MNA: 8 Derrick Score: 17 Diet: 11/07/24 Dinner General (Regular) Diet Diet Modifications: Nutrition Percent Meal Consumed 0% 11/09/24 18:00 Percent Meal Consumed 0% 11/09/24 09:00 Labs: RBC 2.80 X10^6/uL (4.5-5.9) L 11/10/24 04:50 Hgb 8.1 g/dL (13.5-17.5) L 11/10/24 04:50 Hct 23.5 % (41-53) L 11/10/24 04:50 Creatinine 1.02 mg/dL (0.66-1.25) 11/10/24 04:50 Lactate 1.2 mmol/L (0.7-2.1) 11/07/24 13:55 Nutrition Diagnosis: Severe acute protein calorie malnutrition r/t inadequate oral intakes with increased protein-energy needs in setting of chemo treatments as evidenced by 12% weight loss within 6 months (severe), underweight BMI for age (20.2), leiomyosarcoma and receiving chemo Interventions: -pt taking in some sips of drinks, trial Ensure with meals EER: 1900 kcals (30 kcals/kg per BMI) 100 g protein (1.5 g/kg per chemo, PCM) Monitoring/Evaluations: PO intakes Electronically Signed by: Misty Cervantes 11/10/24 10:24 Clinical Dietitian [address] [address]
[2024-11-10] MEDS: LIDOCAINE 2% (GLYDO) 6 ML GEL TOP (11:03)
--- NOTE | 2024-11-10 12:31 | CM.DPC ---
Addendum entered by JAN Estrada 11/10/24 14:34: ADD: Met bedside with pt and SO Thalia and discussed the POA pwk and pt able to discuss his health care wishes and able to state his preference is to have just SO Thalia as his Medical POA and not choose any other alternates at this time. Pt able to sign and witnessed and signed. Copy scanned into EMR and original provided to pt and Sig Other. SO Thalia confirms that pt was able to ambulate with FWW prior to admission and she is a caregiver for work at baseline on [facility], where they live, but she has not taken on new clients since pt started chemo about 4 months ago and she has been pt's primary CG. KIRBY confirms that the [facility] remains walk on only at this time until November 20 and then vehicles can go across. Discussed if pt not safe enough for home then SNF might be recommended but pt's white count and chemo hx might make SNF not the best option at d/c and preference is home with SO to assist. No hx of HH either as pt typically never went to the doctor as he didn't need to, wasn't ever really sick until his cancer dx. Plan: SW to follow for pt's ongoing improvement and eventual likely need of PT/OT eval to confirm safe plan of home with SO on [facility] and any further identified discharge planning needs. BF Addendum entered by JAN Estrada 11/10/24 13:36: ADD: SW called Sig mark Thalia again and left ms requesting if she could be bedside or call as pt wanting her involvement in Goals of Care and POA pwk. BF Original Note: DCP Cont: Per MD, had discussion with Sig Other yesterday and decision to remain full code for now and await pt progress to see if he can improve to be more alert to particiapte in Goals of Care discussion. Per MD and RN, pt more alert this morning than yesterday but not much improvement with labs yet at this time. STEPHANIE met bedside with pt and explained role and pt seemed A&Ox3 and able to answer appropriately but slow in his response time and pt appears to be feeling poorly and wanting to keep laying flat and occasionally closing his eyes with some moaning. Pt able to confirm he is interested in completed POA pwk for medical decision maker and states he plans to have his life partner Thalia as his primary POA but wants her bedside for completion of pwk and also bedside for discussion with MD and medical care. SW attempted to call Thalia and went to voicemail. SW completed top section with pt information on medical POA and left bedside. Updated RN, will attempt to call SO again soon if she does not arrive bedside by lunchtime. JAN Estrada
[2024-11-10] MEDS: FILGRASTIM-AAFI 300 MCG/0.5 ML SYRINGE SUBCUT (13:46)
--- NOTE | 2024-11-10 13:57 | DI.CT.S_ITS ---
PROCEDURE: CT ABDOMEN PELVIS WO CON INDICATIONS: rule out ascites verses distended bladder, unclear on US TECHNIQUE: After the administration of oral contrast, 5 mm thick sections acquired from the diaphragms to the symphysis. 5 mm coronal and sagittal reformats were performed. For radiation dose reduction, the following was used: automated exposure control, adjustment of mA and/or kV according to patient size. COMPARISON: [facility], CT, CT CHEST ABD PEL W CON, 11/07/2024, 12:27. FINDINGS: Image quality: Suboptimal evaluation due to lack of intravenous contrast. Lower Chest: Small pleural effusions. Low attenuation of the blood pool relative to the interventricular septum, consistent with anemia. ABDOMEN: Liver: Stable appendix cysts. Additional subcentimeter hypoattenuating lesions, too small to characterize by CT. Gallbladder: Distended, with sludge. Biliary ducts: No biliary dilation. Pancreas: No ductal dilation. Spleen: Size is within normal limits. Adrenal Glands: No adrenal nodules. Kidneys and Ureters: No hydronephrosis. No contour-deforming mass. Moderate burden of nonobstructing bilateral nephrolithiasis . These are punctate on the right and measuring 6 millimeters in the left . Stomach and Bowel: Normal colonic caliber, without significant wall thickening. Colonic diverticulosis without evidence of diverticulitis. Peritoneum: Small volume ascites. Ventral Wall: No significant hernia. Anasarca. Abdominal Nodes: No retroperitoneal or mesenteric adenopathy by size criteria. Vessels: Aorta and inferior vena cava are normal in size. PELVIS: Pelvic Organs: Small testicular hydroceles. Bladder: Decompressed around a Mata catheter. Pelvic Nodes: No enlarged lymph nodes. Miscellaneous: Unchanged left pelvic sidewall mass measuring 15 x 11 x 19.4 centimeter . Fluid within the right inguinal canal. Bones: No aggressive osseous abnormality. IMPRESSION: Suspected third-spacing of fluids, with moderate volume ascites, small effusions and anasarca. Similar left pelvic sidewall mass. Bladder is decompressed around a Mata catheter. Anemia. Other incidental findings as above. Dictated by: Hemant Beckford M.D. on 11/10/2024 at 14:54 Approved by: Hemant Beckford M.D. on 11/10/2024 at 14:58
[2024-11-10] MEDS: DEXTROSE 5%-0.9% NS 1,000 ML 125 ML IV ×2 (16:20→23:07)
[2024-11-10] MEDS: SODIUM CHLORIDE 0.9% 1,000 ML 1000 ML IV (18:59)
[2024-11-11] VITALS (53 sets, daily range): BP systolic 89–154; BP diastolic 59–104; PULSE 108–156; RESP 10–23; TEMP 36–36.8; O2SAT 92–97
--- NOTE | 2024-11-11 01:55 | PC.NURSE ---
Patient BP 154/104, HR 138 Afib on monitor, Hospitalist on duty notified, IVF of D50.9NS stopped.
[2024-11-11] MEDS: PIPERACILLIN/TAZO 3.375 GM in SODIUM CHLORIDE 0.9% 100 ML IV (02:08)
[2024-11-11] MEDS: OXYCODONE IR 10 MG TABLET PO ×3 (02:23→20:10)
[2024-11-11] MEDS: METOPROLOL TARTRATE 5 MG/5 ML INJ IV ×2 (02:33→14:46)
--- NOTE | 2024-11-11 05:33 | PC.NURSE ---
Unable to draw blood from implanted port, unable to use Heparin flush due to platelet count of 29.
[2024-11-11] MEDS: HYDROMORPHONE 1 MG INJ IV ×4 (06:33→21:08)
--- NOTE | 2024-11-11 07:36 | PM.PN.1 ---
Subjective Subjective Interval history: Summary: 74-year-old man under the primary care of Dr. Escobar called her on, followed by Dr. 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 History is obtained from the patient in a limited degree and also from his life partner Thalia veras by phone. His last chemotherapy was October 27. He has been weak since then but became febrile and confused with temperature of 100? in the last 1-2 days. He describes difficulty urinating and experienced urinary retention with a Mata catheter. He states he has had some difficulty with urination in the past few days. He was given IV piperacillin/tazobactam and vancomycin, IV fluids in the emergency department with serum lactate improving from 3.7-1.2. He was given multiple doses of IV Dilaudid for pain control. Interim history: 11/08: Patient states considerable pain. Administer pain medicine appears more comfortable. He appears unable to decide on care at this point, but agreeable to blood product transfusions and antibiotics. 11/09: Awake but not really speaking. Blood cultures positive for E coli as was urine. Continued on antibiotics. 11/10: Awake and interactive, able to signed durable power of deputy commonwealth's attorney for decision making to his common-law . Low urine output, given fluid bolus. Overnight: He would more restless night. Was given Dilaudid for pain in his somewhat somnolent this morning. S: Arousable and somnolent. Exam Vital Signs (past 8 hours): - 11/11/24 00:00 11/11/24 00:30 11/11/24 01:00 Temperature 97.5 F L Pulse Rate 129 H 125 H 121 H Respiratory Rate 17 16 14 Blood Pressure Pulse Oximetry 93 92 92 11/11/24 01:30 11/11/24 01:44 11/11/24 01:44 Temperature Pulse Rate 131 H 138 H Respiratory Rate 18 20 Blood Pressure 154/104 H Pulse Oximetry 93 94 11/11/24 02:00 11/11/24 02:30 11/11/24 03:00 Temperature Pulse Rate 121 H 136 H 108 H Respiratory Rate 19 17 21 Blood Pressure Pulse Oximetry 93 94 92 11/11/24 03:30 11/11/24 04:00 11/11/24 04:30 Temperature Pulse Rate 114 H 120 H 122 H Respiratory Rate 10 L 17 15 Blood Pressure Pulse Oximetry 93 93 95 11/11/24 05:00 11/11/24 05:30 11/11/24 06:00 Temperature Pulse Rate 123 H 116 H 126 H Respiratory Rate 13 12 20 Blood Pressure Pulse Oximetry 92 93 94 11/11/24 06:20 11/11/24 06:20 Temperature Pulse Rate 128 H Respiratory Rate 17 Blood Pressure 125/100 H Pulse Oximetry 94 Fraction of Inspired Oxygen 28 SaO2/FiO2 Ratio 353 Oxygen Delivery Method Room Air Oxygen Flow Rate 0 Narrative Exam Narrative: Somnolent. Arousable. No acute distress. Lungs are clear, normal rate and effort. Heart is regular, no murmur gallop or rub. Abdomen is soft, non distended. Extremities are free of edema. Objective Imaging CT scan - abdomen: Radiologist's impression: Chest abdomen pelvis CT with contrast 11/07/2024:: Radiologist's impression: 19 cm left pelvic sidewall mass, with associated mass effect upon the external iliac artery and the bladder. The left femoral vein now demonstrates an improved appearance. A small amount of free pelvic fluid is again seen. Additional findings: At least moderate coronary artery calcification Emphysematous change Simple liver cysts, with additional low-density lesions, too small to characterize Stable dilatation of the pancreatic duct Aorto bi-iliac stent graft, patent Labs 11/11/24 07:17 11/11/24 07:17 [facility] Medical History Femoral artery aneurysm (2018) Chickenpox Mumps Measles Migraines (Unknown) Substance abuse (Unknown) Anxiety (Unknown) Deep vein thrombosis (2018) Aortic stenosis (2018) Abdominal aortic aneurysm (AAA) (2018) Surgical History Hx of surgical procedure (08/2017) Hx of aortic aneurysm repair (08/2017) Family History Sister Age: 84 Lymphoma Father No problems noted. Mother No problems noted. Social History household members: significant other Smoking Status: Current some day smoker alcohol intake: former Assessment & Plan Assessment & Plan narrative: 1. Neutropenic fever with Gram-negative bacteremia with E coli/Enterobacter on PCR panel. UTI suspected. No apparent infiltrates on imaging though with severe neutropenia treat empirically with IV piperacillin/tazobactam plus vancomycin for urinary sources as well as pneumonia, gastrointestinal pathogens. 2. Pancytopenia. a. Neutropenia. Neutropenic precautions. b. Severe anemia. Stable, has received 3 units of blood since being in the hospital. c. Severe thrombocytopenia. Had improved, did receive 2 units of platelets. It was a little low again today at 13. 3. Acute metabolic encephalopathy. Monitor with treatment. Appears improving, but not clear if he is able to discuss direction of care going forward at this point. 4. Leiomyosarcoma. 5. Elevated serum lactate due to dehydration, corrected and normalized with IV hydration in the emergency department. 6. Severe protein calorie malnutrition. 7. History of ADD. Plan: -stop Zosyn and vancomycin, start ceftriaxone 2 g Q 24. -follow cultures, E coli sensitive to everything except for intermediate to quinolones. -IV hydration, we will continue and follow urine output. -1 unit of platelets today for thrombocytopenia -nutritional support -irradiated packed red blood cells and platelet transfusions only. -monitor blood counts daily -1 additional dose of GCSF DVT prophylaxis: Contraindicated given severe thrombocytopenia Code status: Full code. This is reviewed with the patient on admission. His life partner of over 20 years [employer] phone [phone] is involved with his care but does not have formal durable power of deputy commonwealth's attorney. He has siblings that she states he does not wish in his life. He has no children. Time-Based Coding :: [TOTAL MINUTES] spent with patient and on the chart (including review of chart, obtaining history, exam, reviewing outside data, placing orders, documenting exam and treatment plan, and counseling patient) on [DATE]. Quality VTE Deep Vein Thrombosis/Pulmonary Embolism Present on Admission: No
[2024-11-11 07:41] LABS: Hemoglobin 9.9 g/dL (13.5-17.5); Mean Corpuscular Hemoglobin 28.1 PG (26-34); Mean Corpuscular Volume 85.1 fL (80-100); Red Blood Cell Count 3.53 X10^6/uL (4.5-5.9); Red Cell Distribution Width 17.4 % (11.6-14.8)
[2024-11-11 07:42] LABS: White Blood Cell Count 1.2 X10^3/uL (4.5-11.0)
[2024-11-11 07:43] LABS: Platelet Count 13 X10^3/uL (150-400)
[2024-11-11 07:58] LABS: BUN Creatinine Ratio 39.2 (6-22); Blood Urea Nitrogen 31 mg/dL (9-20); Calcium 8.1 mg/dL (8.4-10.2); Carbon Dioxide 17 mmol/L (22-32); Chloride 107 mmol/L (98-107); Estimated Glomerular Filt Rate > 60 mL/min (>60); Glucose 141 mg/dL (70-99); HEMOLYSIS < 15 (0-50); Potassium 3.7 mmol/L (3.4-5.1); Sodium 132 mmol/L (137-145)
[2024-11-11 08:01] LABS: Anisocytosis 2+; Burr Cells 1+; Neutrophils Absolute Manual 648 /uL (3000-5900); Total Cells Counted 100
[2024-11-11 08:02] LABS: Rouleaux 1+
[2024-11-11] MEDS: cefTRIAXone 2,000 MG in SODIUM CHLORIDE 0.9% 100 ML 200 MG IV (09:58)
--- NOTE | 2024-11-11 11:10 | DIET.PN1 ---
Dietary Progress Note Assessment: Spoke to RN this morning, pt tolerating chocolate Ensure. Pt also ate around 25% of food last night. Ht: 177.8 cm Wt: 63.957 kg BMI: 20.2 Last BM: 11/07/24 (11/07/24 16:47) MNA: 8 Derrick Score: 13 Diet: 11/07/24 Dinner General (Regular) Diet Diet Modifications: Nutrition Percent Meal Consumed refused meal just want ensure 11/10/24 14:00 Percent Meal Consumed 0% 11/09/24 18:00 Labs: RBC 3.53 X10^6/uL (4.5-5.9) L 11/11/24 07:17 Hgb 9.9 g/dL (13.5-17.5) L 11/11/24 07:17 Hct 30.0 % (41-53) L 11/11/24 07:17 Creatinine 0.79 mg/dL (0.66-1.25) 11/11/24 07:17 Lactate 1.2 mmol/L (0.7-2.1) 11/07/24 13:55 Nutrition Diagnosis: Severe acute protein calorie malnutrition r/t inadequate oral intakes with increased protein-energy needs in setting of chemo treatments as evidenced by 12% weight loss within 6 months (severe), underweight BMI for age (20.2), leiomyosarcoma and receiving chemo Interventions: Providing ONS+ at each meal EER: 1900 kcals (30 kcals/kg per BMI) 100 g protein (1.5 g/kg per chemo, PCM) Monitoring/Evaluations: PO intakes Electronically Signed by: Misty Cervantes 11/11/24 11:10 Clinical Dietitian [address] [address]
[2024-11-11] MEDS: DEXTROSE 5%-0.9% NS 1,000 ML 125 ML IV ×2 (11:48→20:43)
[2024-11-11] MEDS: FILGRASTIM-AAFI 300 MCG/0.5 ML SYRINGE SUBCUT (12:38)
[2024-11-11] MEDS: METOPROLOL ER 25 MG TABLET PO (13:40)
--- NOTE | 2024-11-11 17:45 | PC.NURSE ---
Day Shift Note Patient awake and oriented to self and place this morning, able to answer some questions. Up to chair 2 person assist with FWW where pt remained for a couple hours before going back to bed, impulsive. HR in the 130-140s afib, medicating with IV and PO metoprolol per emar, effective with HR decreasing to low 100s-110s. Pt received 1 unit of platelets without issue. Mata catheter in place draining clear orange urine. Swelling noted to penis, groin, and thighs, elevating as able. Pt noted this afternoon to be more confused. Unable to follow commands, rarely answering questions but able to state he is in pain, fidgeting in bed and appears uncomfortable, medicated with Dilaudid per emar as pt unable to follow directions to take oxycodone. Unable to state where he is, not tracking. HR up to the 140s, afebrile. Dr. Becker notified of pt change in status.
[2024-11-12] VITALS (27 sets, daily range): BP systolic 82–123; BP diastolic 49–77; PULSE 74–175; RESP 8–37; TEMP 36.4; O2SAT 85–96
[2024-11-12] MEDS: METOPROLOL TARTRATE 5 MG/5 ML INJ IV (00:22)
[2024-11-12] MEDS: HYDROMORPHONE 1 MG INJ IV ×2 (00:23→04:59)
[2024-11-12] MEDS: DEXTROSE 5%-0.9% NS 1,000 ML 125 ML IV (05:30)
[2024-11-12] MEDS: HALOPERIDOL 5 MG/ML VIAL IV (07:25)
--- NOTE | 2024-11-12 07:37 | CM.DPC ---
DCP Cont. Reviewed EMR. Pt is demonstrating increased agitation, is no longer lucid, and is having acute pain that has been difficult to manage since forging roll operator hours. Per RN, this RESPIRATORY CARE ASSISTANT called pt's partner, Thalia, and requested that she come to the hospital as soon as possible in order to have a discussion with the Hospitalist and ICU team re: pt's pain/agitation, and end of life symptoms. The plan is to have a goals of care conversation and ultimately increase pt's pain meds to comfort. Updated Dr. Bass/Hospitalist of situation and plan for goals of care, per team request.
--- NOTE | 2024-11-12 07:39 | PC.NURSE ---
Addendum entered by Alanna Mora R.N. 11/12/24 10:00: Goals of care discussion had between this nurse, Dr Bass and STANFORD Stein (pts significant other of 27 years) questions answered and decision was made to make pt Comfort Care, code status changed, POLST form completed, copy in chart, original given to Emil for records. New orders placed, morphine gtt started, care on going. Original Note: Dayshift note: Pt extremely agitated per nightshift starting at 0500, attempting to get out of bed, kicking and pulling at lines (including montalvo, and IV). Called Dr Bass to bedside, verbal order for one time dose of 5mg Haldol and Valium 5mg Q3H for agitation and bladder spasms. Pt attempted to swing at this nurse with closed fist when administering haldol through IV, assistance was required to administer medication. Pt calmed slightly, was able to state that he is in 10/10 pain, Dr Bass notified, waiting on new orders, care ongoing
[2024-11-12] MEDS: HYDROMORPHONE 2 MG INJ IV (08:10)
[2024-11-12] MEDS: diazePAM 10 MG/2 ML SYRINGE 5 MG IV ×2 (09:28→13:26)
[2024-11-12] MEDS: MORPHINE 50 MG in SODIUM CHLORIDE 0.9% 45 ML IV (09:41)
[2024-11-12] MEDS: MORPHINE 100 MG in SODIUM CHLORIDE 0.9% 90 ML IV (17:05)
--- NOTE | 2024-11-12 18:56 | P.PN_ITS ---
Subjective Subjective Date Patient Seen: 11/12/24 Interval history: Chief complaint: Severe abdominal pain secondary to sarcoma History of present illness: 74-year-old man under the primary care of Dr. Escobar called her on, followed by Dr. 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 History is obtained from the patient in a limited degree and also from his life partner Thalia veras by phone. His last chemotherapy was October 27. He has been weak since then but became febrile and confused with temperature of 100? in the last 1-2 days. He describes difficulty urinating and experienced urinary retention with a Mata catheter. He states he has had some difficulty with urination in the past few days. He was given IV piperacillin/tazobactam and vancomycin, IV fluids in the emergency department with serum lactate improving from 3.7-1.2. He was given multiple doses of IV Dilaudid for pain control. Hospital course: 11/08: Patient states considerable pain. Administer pain medicine appears more comfortable. He appears unable to decide on care at this point, but agreeable to blood product transfusions and antibiotics. 11/09: Awake but not really speaking. Blood cultures positive for E coli as was urine. Continued on antibiotics. 11/10: Awake and interactive, able to signed durable power of document review attorney for decision making to his common-law . Low urine output, given fluid bolus. 11/11: He would more restless night. Was given Dilaudid for pain in his somewhat somnolent this morning. 11/12: Became more agitated more pain decision was made for comfort measures and morphine infusion Unable to participate in a review of systems: Physical exam: Somnolent. Arousable. No acute distress. Lungs are clear, normal rate and effort. Heart is regular, no murmur gallop or rub. Abdomen is soft, non distended. Extremities are free of edema. Assessment and plan: Patient placed on comfort measures 1. Neutropenic fever with Gram-negative bacteremia with E coli/Enterobacter on PCR panel. UTI suspected. No apparent infiltrates on imaging though with severe neutropenia treat empirically with IV piperacillin/tazobactam plus vancomycin for urinary sources as well as pneumonia, gastrointestinal pathogens. 2. Pancytopenia. a. Neutropenia. Neutropenic precautions. b. Severe anemia. Stable, has received 3 units of blood since being in the hospital. c. Severe thrombocytopenia. Had improved, did receive 2 units of platelets. It was a little low again today at 13. 3. Acute metabolic encephalopathy. Monitor with treatment. Appears improving, but not clear if he is able to discuss direction of care going forward at this point. 4. Leiomyosarcoma. 5. Elevated serum lactate due to dehydration, corrected and normalized with IV hydration in the emergency department. 6. Severe protein calorie malnutrition. 7. History of ADD. Plan: Discontinue all therapeutic measures DVT prophylaxis: Contraindicated given severe thrombocytopenia Code status: Full code. This is reviewed with the patient on admission. His life partner of over 20 years [employer] phone [phone] is involved with his care but does not have formal durable power of document review attorney. He has siblings that she states he does not wish in his life. He has no children. Time-Based Coding :: 55 minutes spent with patient and on the chart (including review of chart, obtaining history, exam, reviewing outside data, placing orders, documenting exam and treatment plan, and counseling patient) Exam Vital Signs (past 8 hours): Fraction of Inspired Oxygen 28 SaO2/FiO2 Ratio 353 Oxygen Delivery Method Room Air Oxygen Flow Rate 0 Objective Labs 11/11/24 07:17 11/11/24 07:17 Labs: Laboratory Results - last 24 hr 11/12/24 Unknown WBC Cancelled RBC Cancelled Hgb Cancelled Hct Cancelled MCV Cancelled MCH Cancelled MCHC Cancelled RDW Cancelled Plt Count Cancelled Total Counted Cancelled Seg Neutrophils % Cancelled Band Neutrophils % Cancelled Lymphocytes % (Manual) Cancelled Atypical Lymphs % Cancelled Monocytes % (Manual) Cancelled Eosinophils % (Manual) Cancelled Basophils % (Manual) Cancelled Metamyelocytes % Cancelled Myelocytes % Cancelled Promyelocytes % Cancelled Blast Cells % Cancelled Neutrophils # (Manual) Cancelled Nucleated RBCs Cancelled Differential Comment Cancelled Hypersegmented Neuts Cancelled Reactive Lymphocytes Cancelled Plasma Cells Cancelled Smudge Cells Cancelled Other Cell Type Cancelled Toxic Granulation Cancelled Toxic Vacuolation Cancelled Dohle Bodies Cancelled Carl Rods Cancelled WBC Morphology Comment Cancelled Platelet Estimate Cancelled Clumped Platelets Cancelled Plt Morphology Comment Cancelled RBC Morphology Cancelled Dimorphic RBCs Cancelled Polychromasia Cancelled Hypochromasia Cancelled Poikilocytosis Cancelled Basophilic Stippling Cancelled Anisocytosis Cancelled Microcytosis Cancelled Macrocytosis Cancelled Spherocytes Cancelled Pappenheimer Bodies Cancelled Sickle Cells Cancelled Target Cells Cancelled Tear Drop Cells Cancelled Ovalocytes Cancelled Stomatocytes Cancelled Helmet Cells Cancelled [place] Bodies Cancelled [place] Rings Cancelled Trufant Cells Cancelled Acanthocytes (Spur) Cancelled Rouleaux Cancelled Schistocytes Cancelled [facility] Medical History Femoral artery aneurysm (2018) Chickenpox Mumps Measles Migraines (Unknown) Substance abuse (Unknown) Anxiety (Unknown) Deep vein thrombosis (2018) Aortic stenosis (2018) Abdominal aortic aneurysm (AAA) (2018) Surgical History Hx of surgical procedure (08/2017) Hx of aortic aneurysm repair (08/2017) Family History Sister Age: 84 Lymphoma Father No problems noted. Mother No problems noted. Social History household members: significant other Smoking Status: Current some day smoker alcohol intake: former Assessment & Plan Time-Based Coding :: [TOTAL MINUTES] spent with patient and on the chart (including review of chart, obtaining history, exam, reviewing outside data, placing orders, documenting exam and treatment plan, and counseling patient) on [DATE]. Quality VTE Deep Vein Thrombosis/Pulmonary Embolism Present on Admission: No
[2024-11-13] MEDS: MORPHINE 100 MG in SODIUM CHLORIDE 0.9% 90 ML 10 MG IV ×2 (03:13→13:38)
[2024-11-13 10:00] VITALS: BP 92/51; PULSE 88; RESP 12; TEMP 36.8; O2SAT 97
[2024-11-13] MEDS: SCOPOLAMINE 1 PATCH TOP ×3 (13:44→23:59)
--- NOTE | 2024-11-13 14:16 | CM.DPNOTE ---
DCP Cont Reviewed chart. Patient discussed in multidisciplinary rounds. Patient remains managed on comfort care. Patient is on a Morphine infusion. Patient is expected not to survive this hospitalization. SO/DPOA and family have been at bedside. CM team following clinical course closely in case any discharge needs or concerns arise. ELLA
--- NOTE | 2024-11-13 17:54 | PM.PN.1 ---
Subjective Subjective Date Patient Seen: 11/13/24 Interval history: Chief complaint: Severe abdominal pain secondary to sarcoma History of present illness: 74-year-old man under the primary care of Dr. Escobar called her on, followed by Dr. 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 History is obtained from the patient in a limited degree and also from his life partner Thalia veras by phone. His last chemotherapy was October 27. He has been weak since then but became febrile and confused with temperature of 100? in the last 1-2 days. He describes difficulty urinating and experienced urinary retention with a Mata catheter. He states he has had some difficulty with urination in the past few days. He was given IV piperacillin/tazobactam and vancomycin, IV fluids in the emergency department with serum lactate improving from 3.7-1.2. He was given multiple doses of IV Dilaudid for pain control. Hospital course: 11/08: Patient states considerable pain. Administer pain medicine appears more comfortable. He appears unable to decide on care at this point, but agreeable to blood product transfusions and antibiotics. 11/09: Awake but not really speaking. Blood cultures positive for E coli as was urine. Continued on antibiotics. 11/10: Awake and interactive, able to signed durable power of rubber goods inspector tester for decision making to his common-law . Low urine output, given fluid bolus. 11/11: He would more restless night. Was given Dilaudid for pain in his somewhat somnolent this morning. 11/12: Became more agitated more pain decision was made for comfort measures and morphine infusion 11/13: Patient premorbid appears comfortable unresponsive Unable to participate in a review of systems: Physical exam: Premorbid Assessment and plan: Patient placed on comfort measures 1. Neutropenic fever with Gram-negative bacteremia with E coli/Enterobacter on PCR panel. UTI suspected. No apparent infiltrates on imaging though with severe neutropenia treat empirically with IV piperacillin/tazobactam plus vancomycin for urinary sources as well as pneumonia, gastrointestinal pathogens. 2. Pancytopenia. a. Neutropenia. Neutropenic precautions. b. Severe anemia. Stable, has received 3 units of blood since being in the hospital. c. Severe thrombocytopenia. Had improved, did receive 2 units of platelets. It was a little low again today at 13. 3. Acute metabolic encephalopathy. Monitor with treatment. Appears improving, but not clear if he is able to discuss direction of care going forward at this point. 4. Leiomyosarcoma. 5. Elevated serum lactate due to dehydration, corrected and normalized with IV hydration in the emergency department. 6. Severe protein calorie malnutrition. 7. History of ADD. Plan: Discontinue all therapeutic measures DNR Time-Based Coding :: 25 minutes spent with patient and on the chart (including review of chart, obtaining history, exam, reviewing outside data, placing orders, documenting exam and treatment plan, and counseling patient) Exam Vital Signs (past 8 hours): - 11/13/24 10:00 Temperature 98.3 F Pulse Rate 88 Respiratory Rate 12 Blood Pressure 92/51 L Pulse Oximetry 97 Oxygen Flow Rate 0 Fraction of Inspired Oxygen 28 SaO2/FiO2 Ratio 353 Oxygen Delivery Method Room Air Oxygen Flow Rate 0 Objective Labs 11/11/24 07:17 11/11/24 07:17 [facility] Medical History Femoral artery aneurysm (2018) Chickenpox Mumps Measles Migraines (Unknown) Substance abuse (Unknown) Anxiety (Unknown) Deep vein thrombosis (2018) Aortic stenosis (2018) Abdominal aortic aneurysm (AAA) (2018) Surgical History Hx of surgical procedure (08/2017) Hx of aortic aneurysm repair (08/2017) Family History Sister Age: 84 Lymphoma Father No problems noted. Mother No problems noted. Social History household members: significant other Smoking Status: Current some day smoker alcohol intake: former Assessment & Plan Time-Based Coding :: [TOTAL MINUTES] spent with patient and on the chart (including review of chart, obtaining history, exam, reviewing outside data, placing orders, documenting exam and treatment plan, and counseling patient) on [DATE]. Quality VTE Deep Vein Thrombosis/Pulmonary Embolism Present on Admission: No
[2024-11-14] MEDS: MORPHINE 100 MG in SODIUM CHLORIDE 0.9% 90 ML 10 MG IV ×2 (01:05→11:20)
--- NOTE | 2024-11-14 16:33 | PM.PN.1 ---
Subjective Subjective Date Patient Seen: 11/14/24 Interval history: Chief complaint: Severe abdominal pain secondary to sarcoma History of present illness: 74-year-old man under the primary care of Dr. Escobar called her on, followed by Dr. 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 History is obtained from the patient in a limited degree and also from his life partner Thalia veras by phone. His last chemotherapy was October 27. He has been weak since then but became febrile and confused with temperature of 100? in the last 1-2 days. He describes difficulty urinating and experienced urinary retention with a Mata catheter. He states he has had some difficulty with urination in the past few days. He was given IV piperacillin/tazobactam and vancomycin, IV fluids in the emergency department with serum lactate improving from 3.7-1.2. He was given multiple doses of IV Dilaudid for pain control. Hospital course: 11/08: Patient states considerable pain. Administer pain medicine appears more comfortable. He appears unable to decide on care at this point, but agreeable to blood product transfusions and antibiotics. 11/09: Awake but not really speaking. Blood cultures positive for E coli as was urine. Continued on antibiotics. 11/10: Awake and interactive, able to signed durable power of radio reporter for decision making to his common-law . Low urine output, given fluid bolus. 11/11: He would more restless night. Was given Dilaudid for pain in his somewhat somnolent this morning. 11/12: Became more agitated more pain decision was made for comfort measures and morphine infusion 11/13: Patient premorbid appears comfortable unresponsive 11/14: Premorbid no change Unable to participate in a review of systems: Physical exam: Premorbid Assessment and plan: Patient placed on comfort measures 1. Neutropenic fever with Gram-negative bacteremia with E coli/Enterobacter on PCR panel. UTI suspected. No apparent infiltrates on imaging though with severe neutropenia treat empirically with IV piperacillin/tazobactam plus vancomycin for urinary sources as well as pneumonia, gastrointestinal pathogens. 2. Pancytopenia. a. Neutropenia. Neutropenic precautions. b. Severe anemia. Stable, has received 3 units of blood since being in the hospital. c. Severe thrombocytopenia. Had improved, did receive 2 units of platelets. It was a little low again today at 13. 3. Acute metabolic encephalopathy. Monitor with treatment. Appears improving, but not clear if he is able to discuss direction of care going forward at this point. 4. Leiomyosarcoma. 5. Elevated serum lactate due to dehydration, corrected and normalized with IV hydration in the emergency department. 6. Severe protein calorie malnutrition. 7. History of ADD. Plan: Discontinue all therapeutic measures DNR Time-Based Coding :: 25 minutes spent with patient and on the chart (including review of chart, obtaining history, exam, reviewing outside data, placing orders, documenting exam and treatment plan, and counseling patient) Exam Vital Signs (past 8 hours): Fraction of Inspired Oxygen 28 SaO2/FiO2 Ratio 353 Oxygen Delivery Method Room Air Oxygen Flow Rate 0 Objective Labs 11/11/24 07:17 11/11/24 07:17 [facility] Medical History Femoral artery aneurysm (2018) Chickenpox Mumps Measles Migraines (Unknown) Substance abuse (Unknown) Anxiety (Unknown) Deep vein thrombosis (2018) Aortic stenosis (2018) Abdominal aortic aneurysm (AAA) (2018) Surgical History Hx of surgical procedure (08/2017) Hx of aortic aneurysm repair (08/2017) Family History Sister Age: 84 Lymphoma Father No problems noted. Mother No problems noted. Social History household members: significant other Smoking Status: Current some day smoker alcohol intake: former Assessment & Plan Time-Based Coding :: [TOTAL MINUTES] spent with patient and on the chart (including review of chart, obtaining history, exam, reviewing outside data, placing orders, documenting exam and treatment plan, and counseling patient) on [DATE]. Quality VTE Deep Vein Thrombosis/Pulmonary Embolism Present on Admission: No
[2024-11-14] MEDS: MORPHINE 100 MG in SODIUM CHLORIDE 0.9% 90 ML 15 MG IV (19:35)
[2024-11-15] MEDS: MORPHINE 100 MG in SODIUM CHLORIDE 0.9% 90 ML 15 MG IV ×4 (02:20→23:27)
--- NOTE | 2024-11-15 15:32 | CM.DPNOTE ---
DCP Cont Reviewed chart. Patient discussed in multidisciplinary rounds. Patient remains on comfort care. According to Dr Bass- Patient has stabilized clinically - although remains on Morphine infusion. SW team to consider referral to [facility] on Saturday after discussing with SO/STANFORD Vásquez. CM team following clinical course closely. ELLA
[2024-11-15] MEDS: MORPHINE 4 MG/ML INJ IV ×8 (16:50→23:49)
--- NOTE | 2024-11-15 17:30 | P.PN_ITS ---
Subjective Subjective Date Patient Seen: 11/15/24 Interval history: Severe abdominal pain secondary to sarcoma History of present illness: 74-year-old man under the primary care of Dr. Escobar called her on, followed by Dr. 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 History is obtained from the patient in a limited degree and also from his life partner Thalia veras by phone. His last chemotherapy was October 27. He has been weak since then but became febrile and confused with temperature of 100? in the last 1-2 days. He describes difficulty urinating and experienced urinary retention with a Mata catheter. He states he has had some difficulty with urination in the past few days. He was given IV piperacillin/tazobactam and vancomycin, IV fluids in the emergency department with serum lactate improving from 3.7-1.2. He was given multiple doses of IV Dilaudid for pain control. Hospital course: 11/08: Patient states considerable pain. Administer pain medicine appears more comfortable. He appears unable to decide on care at this point, but agreeable to blood product transfusions and antibiotics. 11/09: Awake but not really speaking. Blood cultures positive for E coli as was urine. Continued on antibiotics. 11/10: Awake and interactive, able to signed durable power of disability attorney for decision making to his common-law . Low urine output, given fluid bolus. 11/11: He would more restless night. Was given Dilaudid for pain in his somewhat somnolent this morning. 11/12: Became more agitated more pain decision was made for comfort measures and morphine infusion 11/13: Patient premorbid appears comfortable unresponsive 11/14: Premorbid no change 11/15: Agonal respirations unresponsive Unable to participate in a review of systems: Physical exam: Premorbid Assessment and plan: Patient placed on comfort measures 1. Neutropenic fever with Gram-negative bacteremia with E coli/Enterobacter on PCR panel. UTI suspected. No apparent infiltrates on imaging though with severe neutropenia treat empirically with IV piperacillin/tazobactam plus vancomycin for urinary sources as well as pneumonia, gastrointestinal pathogens. 2. Pancytopenia. a. Neutropenia. Neutropenic precautions. b. Severe anemia. Stable, has received 3 units of blood since being in the hospital. c. Severe thrombocytopenia. Had improved, did receive 2 units of platelets. It was a little low again today at 13. 3. Acute metabolic encephalopathy. Monitor with treatment. Appears improving, but not clear if he is able to discuss direction of care going forward at this point. 4. Leiomyosarcoma. 5. Elevated serum lactate due to dehydration, corrected and normalized with IV hydration in the emergency department. 6. Severe protein calorie malnutrition. 7. History of ADD. Plan: Discontinue all therapeutic measures DNR Time-Based Coding :: 25 minutes spent with patient and on the chart (including review of chart, obtaining history, exam, reviewing outside data, placing orders, documenting exam and treatment plan, and counseling patient) Exam Vital Signs (past 8 hours): Fraction of Inspired Oxygen 28 SaO2/FiO2 Ratio 353 Oxygen Delivery Method Room Air Oxygen Flow Rate 0 Objective Labs 11/11/24 07:17 11/11/24 07:17 [facility] Medical History Femoral artery aneurysm (2018) Chickenpox Mumps Measles Migraines (Unknown) Substance abuse (Unknown) Anxiety (Unknown) Deep vein thrombosis (2018) Aortic stenosis (2018) Abdominal aortic aneurysm (AAA) (2018) Surgical History Hx of surgical procedure (08/2017) Hx of aortic aneurysm repair (08/2017) Family History Sister Age: 84 Lymphoma Father No problems noted. Mother No problems noted. Social History household members: significant other Smoking Status: Current some day smoker alcohol intake: former Assessment & Plan Time-Based Coding :: [TOTAL MINUTES] spent with patient and on the chart (including review of chart, obtaining history, exam, reviewing outside data, placing orders, documenting exam and treatment plan, and counseling patient) on [DATE]. Quality VTE Deep Vein Thrombosis/Pulmonary Embolism Present on Admission: No
[2024-11-15] MEDS: diazePAM 10 MG/2 ML SYRINGE 5 MG IV ×2 (18:28→21:52)
[2024-11-15 20:00] VITALS: PULSE 90; RESP 7; O2SAT 87
[2024-11-15 20:47] VITALS: BP 101/58; PULSE 94; RESP 8; TEMP 37.4; O2SAT 90
[2024-11-16] MEDS: diazePAM 10 MG/2 ML SYRINGE 5 MG IV ×2 (05:11→11:06)
[2024-11-16] MEDS: MORPHINE 100 MG in SODIUM CHLORIDE 0.9% 90 ML 15 MG IV (07:28)
--- NOTE | 2024-11-16 12:16 | CM.DPNOTE ---
Addendum entered by JAN Regalado 11/16/24 14:13: per provider/RN note, pt this afternoon. ORDER BUILDER called [facility] to cancel referral. ORDER BUILDER will continue to follow in case any additional CM needs arise SL Original Note: DCP note ORDER BUILDER reviewed EMR per RN/provider in morning rounds, unclear if pt is imminent or not. stabilized for transfer if hospice arranged out of hospital. provider continues to rec IV morphine for pain management. agonal breathing in room. per EMR, no PO liquid intake for more than 72hrs. ORDER BUILDER met with partner/DPOA Thalia in room. pt unresponsive. [place] reports preference is for pt to remain here and pass, understands that if he stabilizes detention we would have to work on alternative plan. reports it would be just her caring for him at home on [address], open to learning more about [facility], report [place] for her. per intake at [facility], do not have current beds but will put him on wait list. ORDER BUILDER sent referral information for review. will need to cancel if pt passes here. P: CC, pt either to pass vs will continue to work on alternative hospice placement plan outside of [facility]. Will continue to follow closely JAN Regalado
[2024-11-16 13:07] VITALS: PULSE 117; TEMP 36.8; O2SAT 65
--- NOTE | 2024-11-16 13:33 | P.PN_ITS ---
Subjective Subjective Date Patient Seen: 11/16/24 Interval history: Chief complaint: Severe abdominal pain secondary to sarcoma History of present illness: 74-year-old man under the primary care of Dr. Escobar called her on, followed by Dr. 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 History is obtained from the patient in a limited degree and also from his life partner Thalia veras by phone. His last chemotherapy was October 27. He has been weak since then but became febrile and confused with temperature of 100? in the last 1-2 days. He describes difficulty urinating and experienced urinary retention with a Mata catheter. He states he has had some difficulty with urination in the past few days. He was given IV piperacillin/tazobactam and vancomycin, IV fluids in the emergency department with serum lactate improving from 3.7-1.2. He was given multiple doses of IV Dilaudid for pain control. Hospital course: 11/08: Patient states considerable pain. Administer pain medicine appears more comfortable. He appears unable to decide on care at this point, but agreeable to blood product transfusions and antibiotics. 11/09: Awake but not really speaking. Blood cultures positive for E coli as was urine. Continued on antibiotics. 11/10: Awake and interactive, able to signed durable power of contract attorney for decision making to his common-law . Low urine output, given fluid bolus. 11/11: He would more restless night. Was given Dilaudid for pain in his somewhat somnolent this morning. 11/12: Became more agitated more pain decision was made for comfort measures and morphine infusion 11/13: Patient premorbid appears comfortable unresponsive 11/14: Premorbid no change 11/15: Agonal respirations unresponsive 11/16: Continued agonal respirations and unresponsive Unable to participate in a review of systems: Physical exam: Premorbid Assessment and plan: Patient placed on comfort measures 1. Neutropenic fever with Gram-negative bacteremia with E coli/Enterobacter on PCR panel. UTI suspected. No apparent infiltrates on imaging though with severe neutropenia treat empirically with IV piperacillin/tazobactam plus vancomycin for urinary sources as well as pneumonia, gastrointestinal pathogens. 2. Pancytopenia. a. Neutropenia. Neutropenic precautions. b. Severe anemia. Stable, has received 3 units of blood since being in the hospital. c. Severe thrombocytopenia. Had improved, did receive 2 units of platelets. It was a little low again today at 13. 3. Acute metabolic encephalopathy. Monitor with treatment. Appears improving, but not clear if he is able to discuss direction of care going forward at this point. 4. Leiomyosarcoma. 5. Elevated serum lactate due to dehydration, corrected and normalized with IV hydration in the emergency department. 6. Severe protein calorie malnutrition. 7. History of ADD. Plan: Discontinue all therapeutic measures DNR Time-Based Coding :: 25 minutes spent with patient and on the chart (including review of chart, obtaining history, exam, reviewing outside data, placing orders, documenting exam and treatment plan, and counseling patient) Exam Vital Signs (past 8 hours): - 11/16/24 07:00 11/16/24 13:07 Temperature 98.3 F Pulse Rate 117 H Pulse Oximetry 65 L Oxygen Delivery Method Room Air Fraction of Inspired Oxygen 28 SaO2/FiO2 Ratio 353 Oxygen Delivery Method Room Air Oxygen Flow Rate 0 Objective Labs 11/11/24 07:17 11/11/24 07:17 [facility] Medical History Femoral artery aneurysm (2018) Chickenpox Mumps Measles Migraines (Unknown) Substance abuse (Unknown) Anxiety (Unknown) Deep vein thrombosis (2018) Aortic stenosis (2018) Abdominal aortic aneurysm (AAA) (2018) Surgical History Hx of surgical procedure (08/2017) Hx of aortic aneurysm repair (08/2017) Family History Sister Age: 84 Lymphoma Father No problems noted. Mother No problems noted. Social History household members: significant other Smoking Status: Current some day smoker alcohol intake: former Assessment & Plan Time-Based Coding :: [TOTAL MINUTES] spent with patient and on the chart (including review of chart, obtaining history, exam, reviewing outside data, placing orders, documenting exam and treatment plan, and counseling patient) on [DATE]. Quality VTE Deep Vein Thrombosis/Pulmonary Embolism Present on Admission: No
--- NOTE | 2024-11-16 13:59 | PC.NURSE ---
Pt ToD 134. Thalia, life partner, notified. Dr Bass notified. outreach coordinator notified.
--- NOTE | 2024-11-16 13:59 | PM.DDS.1 ---
Discharge Summary Hospital Course Date of Admission: 11/07/24 15:34 Date of : 11/16/24 Consults: 11/07/24 17:02 Consult to Dietitian, Adult Routine Comment: Reason For Exam: unintentional weight 11/12/24 09:19 Consult to Discharge Planning Routine Comment: 11/12/24 09:21 Consult to Hospice Referral Urgent Comment: 11/12/24 19:00 Consult to Discharge Planning Routine Comment: Discharge provider: Dr. Evan Bass Discharge Diagnosis: Osteosarcoma metastatic Hospital Course: Chief complaint: Severe abdominal pain secondary to sarcoma History of present illness: 74-year-old man under the primary care of Dr. Escobar called her on, followed by Dr. 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 History is obtained from the patient in a limited degree and also from his life partner Thalia veras by phone. His last chemotherapy was October 27. He has been weak since then but became febrile and confused with temperature of 100? in the last 1-2 days. He describes difficulty urinating and experienced urinary retention with a Mata catheter. He states he has had some difficulty with urination in the past few days. He was given IV piperacillin/tazobactam and vancomycin, IV fluids in the emergency department with serum lactate improving from 3.7-1.2. He was given multiple doses of IV Dilaudid for pain control. Hospital course: 11/08: Patient states considerable pain. Administer pain medicine appears more comfortable. He appears unable to decide on care at this point, but agreeable to blood product transfusions and antibiotics. 11/09: Awake but not really speaking. Blood cultures positive for E coli as was urine. Continued on antibiotics. 11/10: Awake and interactive, able to signed durable power of assistant city attorney for decision making to his common-law . Low urine output, given fluid bolus. 11/11: He would more restless night. Was given Dilaudid for pain in his somewhat somnolent this morning. 11/12: Became more agitated more pain decision was made for comfort measures and morphine infusion 16: Patient premorbid appears comfortable unresponsive 11/14: Premorbid no change 11/15: Agonal respirations unresponsive 11/16: Continued agonal respirations and unresponsive patient [id number] Unable to participate in a review of systems: Physical exam: Premorbid Assessment and plan: Patient placed on comfort measures 1. Neutropenic fever with Gram-negative bacteremia with E coli/Enterobacter on PCR panel. UTI suspected. No apparent infiltrates on imaging though with severe neutropenia treat empirically with IV piperacillin/tazobactam plus vancomycin for urinary sources as well as pneumonia, gastrointestinal pathogens. 2. Pancytopenia. a. Neutropenia. Neutropenic precautions. b. Severe anemia. Stable, has received 3 units of blood since being in the hospital. c. Severe thrombocytopenia. Had improved, did receive 2 units of platelets. It was a little low again today at 13. 3. Acute metabolic encephalopathy. Monitor with treatment. Appears improving, but not clear if he is able to discuss direction of care going forward at this point. 4. Leiomyosarcoma. 5. Elevated serum lactate due to dehydration, corrected and normalized with IV hydration in the emergency department. 6. Severe protein calorie malnutrition. 7. History of ADD. Plan: Discontinue all therapeutic measures DNR Time-Based Coding :: 25 minutes spent with patient and on the chart (including review of chart, obtaining history, exam, reviewing outside data, placing orders, documenting exam and treatment plan, and counseling patient) Objective Labs 11/11/24 07:17 11/11/24 07:17
== END 2024-11-16 13:46 | disposition expired | DRG 871 ==
LOC: ED 15:31 → AC 15:35 → ICU 16:24
PROVIDERS: Hospitalist; Admitting Provider Internal Medicine; Emergency Provider Emergency Medicine; Referring Provider Emergency Medicine; Visit Provider Internal Medicine
DX: A41.9 Sepsis, unspecified organism (principal); E43 Unspecified severe protein-calorie malnutrition; G93.41 Metabolic encephalopathy; N39.0 Urinary tract infection, site not specified; D61.818 Other pancytopenia; F17.200 Nicotine dependence, unspecified, uncomplicated; C76.2 Malignant neoplasm of abdomen; E86.0 Dehydration; B96.20 Unspecified Escherichia coli [E. coli] as the cause of diseases classified elsewhere; B96.89 Other specified bacterial agents as the cause of diseases classified elsewhere; D70.9 Neutropenia, unspecified; R50.81 Fever presenting with conditions classified elsewhere; I48.0 Paroxysmal atrial fibrillation; G89.3 Neoplasm related pain (acute) (chronic); R10.9 Unspecified abdominal pain; Z66 Do not resuscitate; Z51.5 Encounter for palliative care; Z86.59 Personal history of other mental and behavioral disorders; Z68.20 Body mass index [BMI] 20.0-20.9, adult; Z95.828 Presence of other vascular implants and grafts
CPT/HCPCS: 36415; 36430; 36591; 71260; 74176; 74177; 80048; 80053; 80202; 81003; 81015; 83605; 83690; 85025; 86850; 86900; 86901; 86945; 87040; 87077; 87086; 87154; 87186; 87633; 87797; 93005; 93010; 96361; 96365; 96367; 96368; 99284; P9016; A9270; J0131; J0696; J1171; J1630; J2270; J2543; J3360; P9035; Q5110; Q9967